=== PATIENT | male | born 1930 | race Caucasian/White ===

== ENCOUNTER 2016-05-11 12:17 | Inpatient (IN) | payer MEDICARE, OTHER ==
[2016-05-11] MEDS ORDERED: HOME MEDICATION LIST NEEDED 1 EA EACH MC ONE (12:29)
[2016-05-11] MEDS ORDERED: ALBUTEROL 0.083% 2.5 MG/3 ML VIAL.NEB NEB PRN (12:29)
[2016-05-11] MEDS: IPRATROPIUM/ALBUTEROL 0.5/3 MG 3 ML AMPUL.NEB IH SCH ×3 (14:33→21:18)
[2016-05-11] MEDS ORDERED: LEVOFLOXACIN/D5W 100 ML IV ONE (14:52)
--- NOTE | 2016-05-11 14:53 | HISTORY & PHYSICAL ---
DATE OF ADMISSION: 05/11/16 ATTENDING PHYSICIAN: Orion Sommer MD CHIEF COMPLAINT: Cough. HISTORY OF PRESENT ILLNESS: Patient is an 86-year-old male who presents with a 7 -day history of URI symptoms. He was seen 4 days ago by Primary Care Physician for URI symptoms and was started on a Z-pack. Over the last 4 days, patients respiratory symptoms have worsened with worsening nonproductive cough , bibasilar respiratory symptoms and pleurisy, insomnia secondary to paroxysmal coughing spasms, dizziness, chills and wheezing. No fever, sore throat, sinus pressure, coryza, postnasal drainage, etc. Patient has increased p.o. fluid intake and is on a Z-pack currently. ALLERGIES: None. MEDICATIONS Aspirin 81 mg p.o. daily. Azithromycin 250 mg p.o. daily with today being day 5 and the last day. Calcium 500 mg p.o. daily. Citrucel 5 grams p.o. b.i.d. Docusate 100 mg p.o. b.i.d. Dulcolax 5 mg p.o. b.i.d. PRN. Glycolax 17 grams p.o. b.i.d. Levothyroxine 50 mg p.o. daily. Milk of magnesium 1-2 tablespoons p.o. b.i.d. PRN. Multivitamin 1 tab p.o. daily. Nortriptyline 50 mg p.o. q.h.s. Pravastatin 40 mg p.o. q.h.s. Rashad raphael. Tamsulosin 0.4 mg 2 tabs p.o. q.h.s. Tessalon Perles 100 mg 1-2 tabs p.o. t.i.d. PRN B-complex 1 tab p.o. daily. Zolpidem 5 mg p.o. q.h.s. PAST MEDICAL HISTORY 1. Acinetic keratosis. 2. Allergic rhinitis 3. Benign prostatic hypertrophy. 4. Blepharitis. 5. Constipation. 6. Cataracts bilaterally. 7. Depression. 8. Dysfunctional tear syndrome. 9. Erectile dysfunction. 10. Esophageal achalasia. 11. Gastritis. 12. Gastroesophageal reflux disease. 13. Transient ischemic attack resulting in visual disturbance. 14. Hyperlipidemia. 15. Hypothyroidism. 16. Insomnia. 17. Irritable bowel syndrome. 18. Peptic ulcer disease. 19. History of rib fracture. 20. Right middle finger, trigger finger release 2012. 21. Left middle finger, trigger finger surgery 2016. 22. Basal cell carcinoma. 23. Tongue cancer, status post resection and radiation therapy. 24. Appendectomy. 25. Bilateral knee arthroplasty. SOCIAL HISTORY: , 1 child. Retired from [employer] ([employer]). Rare alcohol. Quit smoking at a 24-xplb-e-year smoking history. FAMILY HISTORY: Father with lung cancer. REVIEW OF SYSTEMS: No heart, asthma, emphysema, kidney, liver, diabetes, seizures, hypertension, new skin or bleeding disorders. No urinary problems. PREVENTIVE HEALTH: Flu shot 12/12/15. Pneumovax 2004. Prevnar 2013. Due for Tdap on an outpatient basis. PHYSICAL EXAMINATION VITAL SIGNS: Blood pressure 106/70, pulse 64, respiratory rate 20, temperature 98.7, room air pulse oxygen 85% which elvie to 88% on oxygen at 3 liters by nasal prongs and to 90% on oxygen at 4 liters per minute by nasal prongs. GENERAL: Well-developed, well-nourished male, NAD, in no respiratory distress, alert and oriented x3. HEENT: EOMI. PERRLA. Fundi difficult to visualize. Normal conjunctivae. TMs normal. Nasopharynx normal. Pharynx not injected. NECK: No lymphadenopathy. No thyromegaly. No carotid bruits. Neck supple. CHEST: Bibasilar rales, rhonchi or wheezes. COR: RRR without murmurs, gallops, rubs or clicks. No jugular venous distention. No ectopy. ABDOMEN: Soft, nontender. No hepatosplenomegaly. No masses. No bruits. No inguinal nodes. Bowel sounds present. LOWER EXTREMITIES: No edema. Peripheral pulses present. No calf tenderness. Negative Homans sign. NEUROLOGIC: Cranial nerves 2-12 intact. Motor 5/5. Sensory intact. DTRs 1+. CHEST X-RAY: No infiltrate. Reviewed chest x-ray with Radiology. LABORATORY DATA: White blood cell count 10.3 with 42% segs, 36% bands, 14% lymphs, 8% monos. Hemoglobin and hematocrit 14.0/40.5, platelets 153,000. Sodium 138, potassium 3.9, chloride 103, CO2 25, glucose 92, BUN 25, creatinine 1.1, calcium 8.6. ASSESSMENT 1. Clinical pneumonia with profound hypoxia. 2. Hypoxia with patient currently on oxygen at 4 liters per minute by nasal prongs. PLAN 1. Sputum and blood cultures pending. 2. AM lab work pending. 3. Recheck chest x-ray in 2 days. 4. Start Levaquin 500 mg p.o. daily. 5. Start Duoneb updrafts q.4 hours. 6. Mucinex 1200 mg p.o. b.i.d. 7. Solu-Medrol 60 mg IV q.6 hours. 8. Oxygen at 4 liters per minute by nasal prongs to be tapered as symptoms improve. MTDD
[2016-05-11] MEDS: LEVOFLOXACIN/D5W 500 MG in DEXTROSE 5% PREMIX 100 ML 1 BAG IV SCH (15:55)
[2016-05-11] MEDS: GUAIFENESIN ER 600 MG TABLET PO SCH (15:58)
[2016-05-11] MEDS: METHYLPREDNISOLONE SOD 125 MG/2 ML VIAL IV SCH ×2 (15:58→21:15)
[2016-05-11] MEDS: LACTATED RINGERS 1,000 ML IV SCH (19:00)
[2016-05-11] MEDS ORDERED: METHYLCELLULOSE PO PRN (19:07)
[2016-05-11] MEDS ORDERED: BENZONATATE 100 MG CAPSULE PO PRN (19:07)
[2016-05-11] MEDS ORDERED: BISACODYL 5 MG TABLET PO PRN (19:07)
[2016-05-11] MEDS: PRAVASTATIN SODIUM 40 MG TABLET PO SCH (21:18)
[2016-05-11] MEDS: DOCUSATE SODIUM 100 MG CAPSULE PO SCH ×2 (21:19→21:34)
[2016-05-11] MEDS: NORTRIPTYLINE HCL 50 MG PO SCH (21:32)
[2016-05-11] MEDS: ZOLPIDEM TARTRATE 5 MG TABLET PO PRN (21:34)
[2016-05-12] MEDS: METHYLPREDNISOLONE SOD 125 MG/2 ML VIAL IV SCH ×4 (02:22→23:49)
[2016-05-12] MEDS: GUAIFENESIN ER 600 MG TABLET PO SCH ×2 (02:22→14:13)
[2016-05-12] MEDS: IPRATROPIUM/ALBUTEROL 0.5/3 MG 3 ML AMPUL.NEB IH SCH ×6 (02:22→21:04)
[2016-05-12] MEDS: LEVOTHYROXINE 50 MCG TABLET PO SCH (06:16)
[2016-05-12] MEDS: LACTATED RINGERS 1,000 ML IV SCH (06:16)
[2016-05-12 06:36] LABS: BLOOD UREA NITROGEN 33 mg/dL (9-20); CALCIUM 8.2 mg/dL (8.4-10.2); CHLORIDE 102 mmol/L (98-107); CREATININE 0.9 mg/dL (0.7-1.3); POTASSIUM 3.1 mmol/L (3.5-5.1); SODIUM 135 mmol/L (137-145)
[2016-05-12 07:09] LABS: GLUCOSE 210 mg/dL (70-100)
[2016-05-12 07:21] LABS: BASOPHILS 0.1 % (0.0-2.0); HEMATOCRIT 38.5 % (42.0-54.0); HEMOGLOBIN 12.8 g/dL (14.0-18.0); LYMPHOCYTES# 0.4 X 10^3uL (0.8-3.8); MEAN CELL VOLUME 90.4 fL (80.0-100.0); MEAN CORPUS. HGB CONCENTRATION 33.3 g/dL (32.0-36.0); MEAN CORPUSCULAR HEMOGLOBIN 30.1 pg (29.0-35.0); MEAN PLATELET VOLUME 8.6 fL (7.4-10.4); MONOCYTES 1.5 % (2.0-10.0); MONOCYTES# 0.1 X 10^3uL (0.2-1.0); NEUTROPHILS# 6.9 X 10^3uL (2.6-6.7); PLATELET COUNT 144 X 10^3uL (130-440); RED BLOOD COUNT 4.25 X 10^6uL (4.20-6.10); RED CELL DISTRIBUTION WIDTH 13.5 % (11.5-14.5); WHITE BLOOD COUNT 7.4 X 10^3uL (3.9-10.7)
[2016-05-12 08:02] LABS: NEUTROPHILS 93.4 % (54.0-75.0)
[2016-05-12] MEDS ORDERED: LEVOFLOXACIN/D5W 100 ML IV ONE (08:28)
[2016-05-12] MEDS: DOCUSATE SODIUM 100 MG CAPSULE PO SCH ×2 (08:34→21:04)
[2016-05-12] MEDS: TAMSULOSIN HCL 0.4 MG CAPSULE PO SCH (08:35)
[2016-05-12] MEDS: POLYETHYLENE GLYCOL 3350 17 GM POWD.PACK PO SCH (08:39)
[2016-05-12] MEDS: SAW PALMETTO XTR PO SCH (08:41)
[2016-05-12] MEDS: ZINC PICOLIN PO SCH (08:41)
[2016-05-12] MEDS: LEVOFLOXACIN/D5W 500 MG in DEXTROSE 5% PREMIX 100 ML 1 BAG IV SCH (08:42)
[2016-05-12] MEDS ORDERED: MULTIVITAMINS THERAPEUTIC 1 TABLET PO SCH (09:00)
[2016-05-12] MEDS ORDERED: VITAMIN B COMPLEX 1 TABLET PO SCH (09:00)
--- NOTE | 2016-05-12 10:29 | PROGRESS NOTE: IM APSO ---
Assessment and Plan - Date of Encounter Date of Encounter: 05/12/16 (1) Pneumonia, bacterial Status: Acute Assessment and plan: No identified organism. Presenting with significant hypoxemia and airway reactivity. Appears to be responding to treatment. White blood count is okay. Oxygen requirement is improving. He is feeling better clinically. Continue levofloxacin, steroids (considering evidence of significant airway reactivity still), bronchodilators, IV fluids, respiratory therapy. Current Visit: Yes (2) Hypoxemia Status: Acute Assessment and plan: See above. No evidence of cardiac decompensation. Doubt pulmonary embolus. Current Visit: Yes (3) Hypotension Status: Acute Assessment and plan: In the setting of pneumonia and dehydration. Currently her symptomatically. Continue to treat infection. Continue IV fluid resuscitation gently. Current Visit: Yes (4) Hypokalemia Status: Acute Assessment and plan: In the setting of IV fluids yesterday with a likely delusional effect and with poor oral intake over the last few days. Stop LR. Start normal saline with potassium. Additional potassium today. Reassess later today. Current Visit: Yes (5) DVT prophylaxis Status: Acute Assessment and plan: Lovenox. Current Visit: Yes - Time Spent With Patient Total time spent with greater than 50% in coordination of care (as documented) at patient's floor/unit and/or counseling patient: 16-24 minutes Estimated anticipated discharge: 2 days IM: PN Subjective General: fatigue, malaise, tremor (mild), no confusion (resolved this morning), no fever, no chills HEENT: no headache Cardiovascular: no chest pain, no palpitations, no dizziness Respiratory: cough, sputum, wheeze, SOB Gastrointestinal: no abdominal pain, no nausea, no vomiting Integumentary: no rashes Neurological: other (generalized weakness), no headache IM: PN Objective Exam - I&O/Vital Signs I&O: Intake & Output 05/11/16 05/12/16 05/12/16 21:59 05:59 13:59 Intake Total 900 1400 Output Total 150 Balance 900 1250 Weight 70.307 kg 70 kg Intake: IV 300 1050 Left Forearm 300 1050 Oral 600 350 Output: Urine 150 Other: Urine Appearance Clear Clear Clear Urine Color Yellow Light Megha Light Megha Stool Size Moderate Stool Characteristics Formed Voiding Method Toilet Toilet Toilet # Voids 1 1 # Bowel Movements 1 Vital Signs: Last Vital Signs Temp 36.2 C L 05/12/16 06:11 Pulse 58 L 05/12/16 06:11 Resp 16 05/12/16 09:00 BP 97/51 05/12/16 06:11 Pulse Ox 93 05/12/16 09:00 Oxygen Flow Rate 2 Oxygen Delivery Method Nasal Cannula - Constitutional General appearance: Present: average body habitus - Head Head exam: Present: atraumatic - Eye Eye exam: Present: PERRL. Absent: scleral icterus - ENT ENT exam: Present: mucous membranes dry - Neck Neck exam: Present: full ROM - Respiratory Respiratory exam: Present: rales (coarse, bibasilar), rhonchi, wheezes. Absent : respiratory distress, stridor - Cardiovascular Cardiovascular exam: Present: RRR (distant). Absent: S3, S4, systolic murmur - GI/Abdominal GI/Abdominal exam: Present: normal bowel sounds, soft. Absent: organomegaly, rebound, rigid, tenderness - Extremities Exam Extremities exam: Absent: calf tenderness, edema - Neurological Exam Neurological exam: Present: oriented X3 - Psychiatric Psychiatric exam: Absent: anxious, depressed - Skin Skin exam: Absent: rash - Allied Health Notes Allied health notes reviewed: case management, nursing - Lab Labs: Laboratory Last Values WBC 7.4 X 10^3uL (3.9-10.7) 05/12/16 05:40 RBC 4.25 X 10^6uL (4.20-6.10) 05/12/16 05:40 Hgb 12.8 g/dL (14.0-18.0) L 05/12/16 05:40 Hct 38.5 % (42.0-54.0) L 05/12/16 05:40 MCV 90.4 fL (80.0-100.0) 05/12/16 05:40 MCH 30.1 pg (29.0-35.0) 05/12/16 05:40 MCHC 33.3 g/dL (32.0-36.0) 05/12/16 05:40 RDW 13.5 % (11.5-14.5) 05/12/16 05:40 Plt Count 144 X 10^3uL (130-440) 05/12/16 05:40 MPV 8.6 fL (7.4-10.4) 05/12/16 05:40 Neutrophils % 93.4 % (54.0-75.0) H 05/12/16 05:40 Lymphocytes % 5.0 % (20.0-40.0) L 05/12/16 05:40 Eosinophils % 0.0 % (0.0-6.0) 05/12/16 05:40 Basophils % 0.1 % (0.0-2.0) 05/12/16 05:40 Neutrophils # 6.9 X 10^3uL (2.6-6.7) H 05/12/16 05:40 Lymphocytes # 0.4 X 10^3uL (0.8-3.8) L 05/12/16 05:40 Monocytes 1.5 % (2.0-10.0) L 05/12/16 05:40 Monocytes # 0.1 X 10^3uL (0.2-1.0) L 05/12/16 05:40 Eosinophils # 0.0 X 10^3uL (0.0-0.4) 05/12/16 05:40 Basophils # 0.0 X 10^3uL (0.0-0.1) 05/12/16 05:40 Sodium 135 mmol/L (137-145) L 05/12/16 05:40 Potassium 3.1 mmol/L (3.5-5.1) L D 05/12/16 05:40 Chloride 102 mmol/L (98-107) 05/12/16 05:40 Carbon Dioxide 21 mmol/L (22-30) L 05/12/16 05:40 BUN 33 mg/dL (9-20) H 05/12/16 05:40 Creatinine 0.9 mg/dL (0.7-1.3) 05/12/16 05:40 GFR Calculation Not Reportable 05/12/16 05:40 Glucose 210 mg/dL (70-100) H 05/12/16 05:40 Calcium 8.2 mg/dL (8.4-10.2) L 05/12/16 05:40 Quality Questions - VTE Prophylaxis Assessment VTE Present on Admission?: No Patient at risk for venous thromboembolism?: Yes VTE Risk Level: High Risk VTE Medical Contraindication: N/A-VTE Prophylaxis ordered (3) Hypotension Qualifiers: Hypotension type: orthostatic hypotension Qualified Code(s): I95.1 - Orthostatic hypotension
[2016-05-12] MEDS: POTASSIUM CHLORIDE/NS 1,000 ML IV SCH (10:31)
[2016-05-12] MEDS: POTASSIUM CHLORIDE 20 MEQ/100 ML PIGGYBACK IV SCH ×2 (10:32→12:00)
[2016-05-12] MEDS ORDERED: ALBUTEROL 0.083% 2.5 MG/3 ML VIAL.NEB NEB PRN (10:38)
[2016-05-12] MEDS ORDERED: POTASSIUM CHLORIDE/NS 1,000 ML IV ONE (10:41)
[2016-05-12] MEDS ORDERED: METHYLPREDNISOLONE SOD 125 MG/2 ML VIAL IV SCH (11:00)
[2016-05-12] MEDS: ENOXAPARIN SODIUM 40 MG/0.4 ML SYR SUBCUT SCH (11:15)
[2016-05-12 20:40] LABS: CALCIUM 8.5 mg/dL (8.4-10.2); CREATININE 0.9 mg/dL (0.7-1.3); POTASSIUM 3.6 mmol/L (3.5-5.1)
[2016-05-12] MEDS: PRAVASTATIN SODIUM 40 MG TABLET PO SCH (21:04)
[2016-05-12] MEDS: MAGNESIUM HYDROXIDE 30 ML UDC PO PRN (21:06)
[2016-05-12] MEDS: NORTRIPTYLINE HCL 50 MG PO SCH (21:32)
[2016-05-12] MEDS: ZOLPIDEM TARTRATE 5 MG TABLET PO PRN (22:37)
[2016-05-12] MEDS: ACETAMINOPHEN 325 MG TABLET PO PRN (23:53)
[2016-05-13] MEDS: GUAIFENESIN ER 600 MG TABLET PO SCH ×3 (00:12→20:41)
[2016-05-13] MEDS: POTASSIUM CHLORIDE/NS 1,000 ML IV SCH (00:13)
[2016-05-13] MEDS ORDERED: ZOLPIDEM TARTRATE 5 MG TABLET PO ONE (02:13)
[2016-05-13] MEDS: NA PHOS,M-B/NA PHOS,DI-BA 133 ML BTL RECTAL PRN (02:59)
[2016-05-13] MEDS: LEVOTHYROXINE 50 MCG TABLET PO SCH (05:57)
[2016-05-13 06:19] LABS: BLOOD UREA NITROGEN 40 mg/dL (9-20); CALCIUM 8.2 mg/dL (8.4-10.2); CHLORIDE 107 mmol/L (98-107); CREATININE 0.8 mg/dL (0.7-1.3); GLUCOSE 106 mg/dL (70-100); POTASSIUM 3.7 mmol/L (3.5-5.1); SODIUM 138 mmol/L (137-145)
[2016-05-13 07:59] LABS: HEMATOCRIT 37.6 % (42.0-54.0); HEMOGLOBIN 12.7 g/dL (14.0-18.0); MEAN CELL VOLUME 90.8 fL (80.0-100.0); MEAN CORPUS. HGB CONCENTRATION 33.9 g/dL (32.0-36.0); MEAN CORPUSCULAR HEMOGLOBIN 30.8 pg (29.0-35.0); MEAN PLATELET VOLUME 8.1 fL (7.4-10.4); PLATELET COUNT 195 X 10^3uL (130-440); RED BLOOD COUNT 4.14 X 10^6uL (4.20-6.10); RED CELL DISTRIBUTION WIDTH 13.5 % (11.5-14.5); WHITE BLOOD COUNT 18.2 X 10^3uL (3.9-10.7)
[2016-05-13 08:03] LABS: BAND% (Manual) 8 % (0.0-1.0); LYMPHOCYTE % (Manual) 3 % (20.0-40.0); MONOCYTE % (Manual) 1 % (2.0-10.0); NEUTROPHIL % (Manual) 88 % (54.0-75.0); PLATELET ESTIMATE ADEQUATE
[2016-05-13 08:04] LABS: BURR CELLS PRESENT
[2016-05-13] MEDS ORDERED: PSYLLIUM SEED 1 PKT PACKET PO PRN (08:51)
[2016-05-13] MEDS: POLYETHYLENE GLYCOL 3350 17 GM POWD.PACK PO SCH (08:53)
[2016-05-13] MEDS: TAMSULOSIN HCL 0.4 MG CAPSULE PO SCH (08:54)
[2016-05-13] MEDS: DOCUSATE SODIUM 100 MG CAPSULE PO SCH ×2 (08:54→20:40)
[2016-05-13] MEDS: ENOXAPARIN SODIUM 40 MG/0.4 ML SYR SUBCUT SCH (08:56)
[2016-05-13] MEDS: LEVOFLOXACIN/D5W 500 MG in DEXTROSE 5% PREMIX 100 ML 1 BAG IV SCH (08:56)
[2016-05-13] MEDS: METHYLPREDNISOLONE SOD 125 MG/2 ML VIAL IV SCH ×3 (08:56→23:42)
[2016-05-13] MEDS: ZINC PICOLIN PO SCH (08:57)
[2016-05-13] MEDS: SAW PALMETTO XTR PO SCH (08:57)
[2016-05-13] MEDS ORDERED: LEVOFLOXACIN/D5W 100 ML IV ONE (09:02)
[2016-05-13] MEDS: IPRATROPIUM/ALBUTEROL 0.5/3 MG 3 ML AMPUL.NEB IH SCH ×4 (09:10→20:40)
--- NOTE | 2016-05-13 10:18 | PROGRESS NOTE: IM APSO ---
Assessment and Plan - Date of Encounter Date of Encounter: 05/13/16 (1) Pneumonia, bacterial Status: Acute Assessment and plan: Neg blood and sputum cultures Worsening leukocytosis, but less left shift. Suspect pt is starting to respond to Rx Continue present Rx Current Visit: Yes (2) Hypoxemia Status: Acute Assessment and plan: O2 @ 2 l/min Current Visit: Yes (3) Hypokalemia Status: Resolved Current Visit: Yes (4) Hypotension Status: Acute Assessment and plan: Improved Current Visit: Yes - Time Spent With Patient Total time spent with greater than 50% in coordination of care (as documented) at patient's floor/unit and/or counseling patient: Estimated anticipated discharge: 2 days IM: PN Subjective Interval history: Feeling some better Cardiovascular: no chest pain Respiratory: cough (less productive, and mostly at night), no SOB IM: PN Objective Exam - I&O/Vital Signs I&O: Intake & Output 05/12/16 05/13/16 05/13/16 21:59 05:59 13:59 Intake Total 1126 1537 Output Total 550 675 Balance 576 862 Weight 71 kg Intake: IV 406 1287 Left Forearm 406 1287 Oral 720 250 Output: Urine 550 675 Other: Urine Appearance Clear Clear Urine Color Yellow Light Megha Stool Size Smear Copious Stool Characteristics Hard Soft Formed Hard Liquid Mucoid Brown Voiding Method Toilet Toilet # Voids 3 # Bowel Movements 3 Vital Signs: Last Vital Signs Temp 36.3 C L 05/13/16 07:00 Pulse 60 05/13/16 07:00 Resp 16 05/13/16 07:00 BP 100/57 05/13/16 07:00 Pulse Ox 92 05/13/16 07:00 Oxygen Flow Rate 2 Oxygen Delivery Method Nasal Cannula - Respiratory Respiratory exam: Present: rales (fine L basilar), rhonchi. Absent: wheezes - Cardiovascular Cardiovascular exam: Present: RRR. Absent: systolic murmur - GI/Abdominal GI/Abdominal exam: Present: soft. Absent: tenderness - Extremities Exam Extremities exam: Absent: calf tenderness, edema - Lab Labs: Laboratory Last Values WBC 18.2 X 10^3uL (3.9-10.7) H 05/13/16 05:55 RBC 4.14 X 10^6uL (4.20-6.10) L 05/13/16 05:55 Hgb 12.7 g/dL (14.0-18.0) L 05/13/16 05:55 Hct 37.6 % (42.0-54.0) L 05/13/16 05:55 MCV 90.8 fL (80.0-100.0) 05/13/16 05:55 MCH 30.8 pg (29.0-35.0) 05/13/16 05:55 MCHC 33.9 g/dL (32.0-36.0) 05/13/16 05:55 RDW 13.5 % (11.5-14.5) 05/13/16 05:55 Plt Count 195 X 10^3uL (130-440) 05/13/16 05:55 MPV 8.1 fL (7.4-10.4) 05/13/16 05:55 Total Counted 100 05/13/16 05:55 Neutrophils % 93.4 % (54.0-75.0) H 05/12/16 05:40 Neutrophils % (Manual) 88 % (54.0-75.0) H 05/13/16 05:55 Band Neuts % (Manual) 8 % (0.0-1.0) H 05/13/16 05:55 Lymphocytes % 5.0 % (20.0-40.0) L 05/12/16 05:40 Lymphocytes % (Manual) 3 % (20.0-40.0) L 05/13/16 05:55 Atypical Lymphs % (Man) 0 % 05/13/16 05:55 Monocytes % (Manual) 1 % (2.0-10.0) L 05/13/16 05:55 Eosinophils % 0.0 % (0.0-6.0) 05/12/16 05:40 Basophils % 0.1 % (0.0-2.0) 05/12/16 05:40 Neutrophils # 6.9 X 10^3uL (2.6-6.7) H 05/12/16 05:40 Lymphocytes # 0.4 X 10^3uL (0.8-3.8) L 05/12/16 05:40 Monocytes 1.5 % (2.0-10.0) L 05/12/16 05:40 Monocytes # 0.1 X 10^3uL (0.2-1.0) L 05/12/16 05:40 Eosinophils # 0.0 X 10^3uL (0.0-0.4) 05/12/16 05:40 Basophils # 0.0 X 10^3uL (0.0-0.1) 05/12/16 05:40 Platelet Estimate Adequate 05/13/16 05:55 Anisocytosis 10-19% of cells 05/13/16 05:55 Macrocytosis 10-19% of cells 05/13/16 05:55 [place] Cells Present 05/13/16 05:55 Sodium 138 mmol/L (137-145) 05/13/16 05:55 Potassium 3.7 mmol/L (3.5-5.1) 05/13/16 05:55 Chloride 107 mmol/L (98-107) 05/13/16 05:55 Carbon Dioxide 21 mmol/L (22-30) L 05/13/16 05:55 BUN 40 mg/dL (9-20) H 05/13/16 05:55 Creatinine 0.8 mg/dL (0.7-1.3) 05/13/16 05:55 GFR Calculation Not Reportable 05/13/16 05:55 Glucose 106 mg/dL (70-100) H 05/13/16 05:55 Calcium 8.2 mg/dL (8.4-10.2) L 05/13/16 05:55 (4) Hypotension Qualifiers: Hypotension type: orthostatic hypotension Qualified Code(s): I95.1 - Orthostatic hypotension Anisocytosis 10-19% of cells 05/13/16 05:55 Macrocytosis 10-19% of cells 05/13/16 05:55 [place] Cells Present 05/13/16 05:55 Sodium 138 mmol/L (137-145) 05/13/16 05:55 Potassium 3.7 mmol/L (3.5-5.1) 05/13/16 05:55 Chloride 107 mmol/L (98-107) 05/13/16 05:55 Carbon Dioxide 21 mmol/L (22-30) L 05/13/16 05:55 BUN 40 mg/dL (9-20) H 05/13/16 05:55 Creatinine 0.8 mg/dL (0.7-1.3) 05/13/16 05:55 GFR Calculation Not Reportable 05/13/16 05:55 Glucose 106 mg/dL (70-100) H 05/13/16 05:55 Calcium 8.2 mg/dL (8.4-10.2) L 05/13/16 05:55 (4) Hypotension Qualifiers: Hypotension type: orthostatic hypotension Qualified Code(s): I95.1 - Orthostatic hypotension
--- NOTE | 2016-05-13 11:43 | RADIOLOGY REPORT ---
Two views of the chest are compared with prior films dated 05/11/2016. The heart and vessels are stable and unremarkable. The lung null are clear. No infiltrate, fluid or pneumothorax is seen. IMPRESSION: Stable chest x-ray demonstrates no acute cardiopulmonary abnormality. MTDD
[2016-05-13] MEDS: AMITRIPTYLINE HCL 25 MG TABLET PO SCH (20:41)
[2016-05-13] MEDS: PRAVASTATIN SODIUM 40 MG TABLET PO SCH (20:42)
[2016-05-13] MEDS: ACETAMINOPHEN 325 MG TABLET PO PRN (20:52)
[2016-05-13] MEDS: ZOLPIDEM TARTRATE 5 MG TABLET PO PRN (20:52)
[2016-05-14] MEDS ORDERED: ALBUTEROL INHALATION SCH
[2016-05-14] MEDS ORDERED: IPRATROPIUM INHALATION SCH
[2016-05-14] MEDS ORDERED: MAG-AL PLUS XS SUSP 30 ML UDC PO PRN (04:02)
[2016-05-14] MEDS: LEVOTHYROXINE 50 MCG TABLET PO SCH (05:56)
[2016-05-14 06:38] LABS: BLOOD UREA NITROGEN 31 mg/dL (9-20); CALCIUM 8.2 mg/dL (8.4-10.2); CHLORIDE 107 mmol/L (98-107); CREATININE 0.7 mg/dL (0.7-1.3); GLUCOSE 117 mg/dL (70-100); POTASSIUM 4.4 mmol/L (3.5-5.1); SODIUM 136 mmol/L (137-145)
[2016-05-14 06:43] LABS: HEMATOCRIT 37.4 % (42.0-54.0); HEMOGLOBIN 12.3 g/dL (14.0-18.0); MEAN CELL VOLUME 90.3 fL (80.0-100.0); MEAN CORPUSCULAR HEMOGLOBIN 29.8 pg (29.0-35.0); MEAN PLATELET VOLUME 8.4 fL (7.4-10.4); PLATELET COUNT 210 X 10^3uL (130-440); RED BLOOD COUNT 4.14 X 10^6uL (4.20-6.10); RED CELL DISTRIBUTION WIDTH 13.5 % (11.5-14.5); WHITE BLOOD COUNT 16.4 X 10^3uL (3.9-10.7)
[2016-05-14 07:13] LABS: LYMPHOCYTE % (Manual) 4 % (20.0-40.0); NEUTROPHIL % (Manual) 87 % (54.0-75.0)
[2016-05-14 07:14] LABS: BURR CELLS PRESENT; MONOCYTE % (Manual) 7 % (2.0-10.0); PLATELET ESTIMATE ADEQUATE
[2016-05-14 07:15] LABS: BAND% (Manual) 2 % (0.0-1.0)
[2016-05-14] MEDS: CLOTRIMAZOLE 10 MG TROCHE MUCOUS MEM SCH ×4 (08:32→20:26)
[2016-05-14] MEDS: DOCUSATE SODIUM 100 MG CAPSULE PO SCH ×2 (08:33→20:26)
[2016-05-14] MEDS: METHYLPREDNISOLONE SOD 125 MG/2 ML VIAL IV SCH (08:33)
[2016-05-14] MEDS: TAMSULOSIN HCL 0.4 MG CAPSULE PO SCH (08:34)
[2016-05-14] MEDS: GUAIFENESIN ER 600 MG TABLET PO SCH ×2 (08:34→20:27)
[2016-05-14] MEDS ORDERED: LEVOFLOXACIN/D5W 100 ML IV ONE (08:37)
[2016-05-14] MEDS: ENOXAPARIN SODIUM 40 MG/0.4 ML SYR SUBCUT SCH (09:09)
[2016-05-14] MEDS: LEVOFLOXACIN/D5W 500 MG in DEXTROSE 5% PREMIX 100 ML 1 BAG IV SCH (09:09)
[2016-05-14] MEDS: POLYETHYLENE GLYCOL 3350 17 GM POWD.PACK PO SCH (09:09)
[2016-05-14] MEDS: SAW PALMETTO XTR PO SCH (09:10)
[2016-05-14] MEDS: ZINC PICOLIN PO SCH (09:10)
[2016-05-14] MEDS: IPRATROPIUM/ALBUTEROL 0.5/3 MG 3 ML AMPUL.NEB IH SCH (09:13)
--- NOTE | 2016-05-14 09:26 | PROGRESS NOTE: IM APSO ---
Assessment and Plan - Date of Encounter Date of Encounter: 05/14/16 (1) Pneumonia, bacterial Status: Acute Assessment and plan: No identified organism. Presenting with significant hypoxemia and airway reactivity. Responding to treatment. Persistent leukocytosis, but with probable steroid effect. Saturating well on room air during the day with mild hypoxia at night last night. He is feeling better day by day. Anticipate discharge to home tomorrow morning. Change to oral antibiotic. Change to oral steroid. Change to Combivent MDI. I will send prescriptions to his local pharmacy today in anticipation of discharge. Current Visit: Yes (2) Hypoxemia Status: Acute Current Visit: Yes (3) Hypotension Status: Resolved Current Visit: Yes (4) DVT prophylaxis Status: Acute Assessment and plan: Lovenox. Current Visit: Yes - Time Spent With Patient Total time spent with greater than 50% in coordination of care (as documented) at patient's floor/unit and/or counseling patient: 16-24 minutes Estimated anticipated discharge: tomorrow IM: PN Subjective General: other (developed thrush yesterday), no fever, no chills Cardiovascular: no chest pain, no palpitations Respiratory: cough (less productive, and mostly at night), wheeze (better), no SOB Gastrointestinal: no abdominal pain, no nausea, no vomiting, no diarrhea Musculoskeletal: no pain Integumentary: no rashes IM: PN Objective Exam - I&O/Vital Signs I&O: Intake & Output 05/13/16 05/14/16 05/14/16 21:59 05:59 13:59 Intake Total 590 520 Output Total 850 575 Balance -260 -55 Intake: IV 110 20 Left Forearm 110 20 Oral 480 500 Output: Urine 850 575 Other: Urine Appearance Clear Urine Color Yellow Voiding Method Toilet Toilet Vital Signs: Last Vital Signs Temp 36.2 C L 05/14/16 06:15 Pulse 60 05/14/16 06:15 Resp 18 05/14/16 06:15 BP 118/69 05/14/16 06:15 Pulse Ox 94 05/14/16 06:15 Oxygen Flow Rate 1 Oxygen Delivery Method Nasal Cannula - Constitutional General appearance: Present: average body habitus - Head Head exam: Present: atraumatic - Eye Eye exam: Present: PERRL. Absent: scleral icterus - ENT ENT exam: Present: mucous membranes moist, other (mild thrush) - Neck Neck exam: Present: full ROM - Respiratory Respiratory exam: Present: rales (bibasilar, left greater than right), rhonchi, wheezes (scattered expiratory) - Cardiovascular Cardiovascular exam: Present: RRR. Absent: S3, S4 - GI/Abdominal GI/Abdominal exam: Present: normal bowel sounds, soft. Absent: organomegaly, rebound, rigid, tenderness - Extremities Exam Extremities exam: Absent: calf tenderness, edema - Neurological Exam Neurological exam: Present: oriented X3 - Psychiatric Psychiatric exam: Absent: anxious, depressed - Skin Skin exam: Absent: rash - Allied Health Notes Allied health notes reviewed: nursing, RT - Lab Labs: Laboratory Last Values WBC 16.4 X 10^3uL (3.9-10.7) H 05/14/16 06:10 RBC 4.14 X 10^6uL (4.20-6.10) L 05/14/16 06:10 Hgb 12.3 g/dL (14.0-18.0) L 05/14/16 06:10 Hct 37.4 % (42.0-54.0) L 05/14/16 06:10 MCV 90.3 fL (80.0-100.0) 05/14/16 06:10 MCH 29.8 pg (29.0-35.0) 05/14/16 06:10 MCHC 33.0 g/dL (32.0-36.0) 05/14/16 06:10 RDW 13.5 % (11.5-14.5) 05/14/16 06:10 Plt Count 210 X 10^3uL (130-440) 05/14/16 06:10 MPV 8.4 fL (7.4-10.4) 05/14/16 06:10 Total Counted 100 05/14/16 06:10 Neutrophils % 93.4 % (54.0-75.0) H 05/12/16 05:40 Neutrophils % (Manual) 87 % (54.0-75.0) H 05/14/16 06:10 Band Neuts % (Manual) 2 % (0.0-1.0) H 05/14/16 06:10 Lymphocytes % 5.0 % (20.0-40.0) L 05/12/16 05:40 Lymphocytes % (Manual) 4 % (20.0-40.0) L 05/14/16 06:10 Atypical Lymphs % (Man) 0 % 05/13/16 05:55 Monocytes % (Manual) 7 % (2.0-10.0) 05/14/16 06:10 Eosinophils % 0.0 % (0.0-6.0) 05/12/16 05:40 Basophils % 0.1 % (0.0-2.0) 05/12/16 05:40 Neutrophils # 6.9 X 10^3uL (2.6-6.7) H 05/12/16 05:40 Lymphocytes # 0.4 X 10^3uL (0.8-3.8) L 05/12/16 05:40 Monocytes 1.5 % (2.0-10.0) L 05/12/16 05:40 Monocytes # 0.1 X 10^3uL (0.2-1.0) L 05/12/16 05:40 Eosinophils # 0.0 X 10^3uL (0.0-0.4) 05/12/16 05:40 Basophils # 0.0 X 10^3uL (0.0-0.1) 05/12/16 05:40 Platelet Estimate Adequate 05/14/16 06:10 Anisocytosis 10-19% of cells 05/14/16 06:10 Macrocytosis 10-19% of cells 05/13/16 05:55 [place] Cells Present 05/14/16 06:10 Sodium 136 mmol/L (137-145) L 05/14/16 06:10 Potassium 4.4 mmol/L (3.5-5.1) 05/14/16 06:10 Chloride 107 mmol/L (98-107) 05/14/16 06:10 Carbon Dioxide 22 mmol/L (22-30) 05/14/16 06:10 BUN 31 mg/dL (9-20) H 05/14/16 06:10 Creatinine 0.7 mg/dL (0.7-1.3) 05/14/16 06:10 GFR Calculation Not Reportable 05/14/16 06:10 Glucose 117 mg/dL (70-100) H 05/14/16 06:10 Calcium 8.2 mg/dL (8.4-10.2) L 03/03/17 06:10 (3) Hypotension Qualifiers: Hypotension type: orthostatic hypotension Qualified Code(s): I95.1 - Orthostatic hypotension
--- NOTE | 2016-05-14 09:43 | DC SUMMARY: IM Note ---
<INES DUMONT - Last Filed: 05/14/16 09:38> Discharge Summary: IM/Peds Provider: Date of Admission: 05/11/16 Admitting Provider: JOE JUNIOR MD Attending Provider: INES DUMONT MD Discharging Provider: INES DUMONT MD Primary Care Provider: Discharge Date: 05/14/16 - Diagnosis (1) Pneumonia, bacterial Status: Acute (2) Hypoxemia Status: Acute (3) Hypotension Status: Resolved Qualifiers: Hypotension type: orthostatic hypotension Qualified Code(s): I95.1 - Orthostatic hypotension (4) Thrush Status: Acute (5) DVT prophylaxis Status: Acute Hospital Course: As previously documented, patient admitted for failure of outpatient therapy for pulmonary infection. Evidence of pneumonia clinically, although chest x-ray not showing any infiltrates. Cultures not showing any evidence of clear organism. Significant airway reactivity. Had been treated with azithromycin orally in the outpatient setting. Treated here with IV and then oral levofloxacin with good response. Treated with IV steroids and transitioned to oral. Treated with bronchodilator therapy, initially nebulizers and then transitioned to MDI. Clinical improvement with decreased cough, increased energy and strength, decreased wheezing, significant improvement in oxygenation. Will discharge to home on 5 days of levofloxacin, another 5 days of prednisone burst, Combivent MDI for the next couple of weeks. Initially, had hypokalemia which was treated with initially IV replacement. Had hypotension which resolved with IV fluid resuscitation and treatment of infection. Did develop thrush and was started on clotrimazole troches. - Time Spent with Patient Total time spent providing and/or coordinating discharge services: Discharge - Patient/Caregiver Discharge Instructions Activity Level: As tolerated. Diet: Cardiac. Follow up: INES DUMONT MD [Primary Care Provider] - 2 Weeks Overall discharge status: patient is progressing back to baseline Print Language: KYRGYZ Home Medications: Ipratropium/Albuterol [Combivent Inhaler*] 2 puff INHALATION QID #1 inhaler Levofloxacin 500 mg PO DAILY #5 tab Clotrimazole [Mycelex*] 10 mg MUCOUS MEM 5 TIMES DAILY #35 halley prednisone [Prednisone] 20 mg PO BID #10 tablet Benzonatate [Tessalon Perle] 200 mg PO TID PRN #50 capsule PRN Reason: Cough, Moderate Disposition: HOME, SELF-CARE 1. Medical reason for no anticoagulation order on D/C?: Treatment not indicated 2. Medical reason for no anticoag overlap on D/C?: Treatment not indicated Discharge Summary Data - Medication History Medication History: Home Medications Docusate Sodium [Colace*] 100 mg PO BID 05/11/16 Levothyroxine [Synthroid*] 50 mcg PO DAILY 05/11/16 Magnesium Hydroxide [Milk of Magnesia*] 5 - 10 ml PO BID PRN 05/11/16 Methylcellulose [Citrucel] 5 gm PO BID PRN 05/11/16 Multivitamins,Therapeutic [Thera Multivitamin*] 1 tab PO DAILY 05/11/16 Nortriptyline HCl 50 mg PO HS 05/11/16 Polyethylene Glycol 3350 [Glycolax] 17 gm PO DAILY 05/11/16 Pravastatin Sodium [Pravastatin Sodium*] 40 mg PO HS 05/11/16 Saw Hunter Xtr/Zinc Picolin [Saw Hunter Capsule] 1 cap PO DAILY 05/11/16 Tamsulosin HCl [Flomax*] 0.8 mg PO DAILY 05/11/16 Vitamin B Complex 1 tab PO DAILY 05/11/16 Zolpidem Tartrate [Ambien*] 5 mg PO HS PRN 05/11/16 Acetaminophen [Tylenol*] 650 mg PO Q6H PRN #1 tablet 05/14/16 Benzonatate [Tessalon Perle] 200 mg PO TID PRN #50 capsule 05/14/16 Bisacodyl [Bisacodyl*] 5 mg PO BID PRN #1 05/14/16 Clotrimazole [Mycelex*] 10 mg MUCOUS MEM 5 TIMES DAILY #35 halley 05/14/16 Guaifenesin ER [Mucinex*] 1,200 mg PO Q12H 7 Days 05/14/16 Ipratropium/Albuterol [Combivent Inhaler*] 2 puff INHALATION QID #1 inhaler 05/28 Levofloxacin 500 mg PO DAILY #5 tab 05/14/16 aspirin EC [Aspirin EC*] 81 mg PO BID #1 05/14/16 prednisone [Prednisone] 20 mg PO BID #10 tablet 05/14/16 Inpatient Medications 05/11/16 09:00 Levofloxacin/D5w [Levaquin 500 mg] 500 mg Dextrose 5% Premix 100 ml [D5w 100 ml [Premix]] 1 bag IV DAILY 05/11/16 12:29 Acetaminophen [Tylenol] 650 mg PO Q6H PRN 05/11/16 19:07 Benzonatate [Tessalon Pearles] 100 mg PO TID PRN Bisacodyl [Dulcolax] 5 mg PO BID PRN Magnesium Hydroxide [Milk of Magnesia] 5 - 10 ml PO BID PRN Zolpidem Tartrate [Ambien] 5 mg PO HS PRN 05/11/16 21:00 Docusate Sodium [Colace] 100 mg PO BID Pravastatin Sodium [Pravachol] 40 mg PO HS aspirin EC [Ecotrin 81 mg] 81 mg PO BID 05/12/16 06:30 Levothyroxine [Synthroid] 50 mcg PO BEFORE BREAKFAST 05/12/16 09:00 Polyethylene Glycol 3350 [miraLAX] 17 gm PO DAILY Saw Hunter Xtr/Zinc Picolin [Saw Hunter Capsule] 1 cap PO DAILY Tamsulosin HCl [Flomax] 0.8 mg PO DAILY 05/12/16 10:38 Albuterol 0.083% [Ventolin 0.083% Neb Soln] 2.5 mg NEB Q4H PRN 05/12/16 10:45 Enoxaparin Sodium [Lovenox] 40 mg SUBCUT DAILY 05/12/16 13:00 Ipratropium/Albuterol 0.5/3 mg [Duoneb 2.5-0.5 mg/3 ml Soln] 3 ml IH QID 05/12/16 16:30 Methylprednisolone Sod [Solu-Medrol] 60 mg IV Q8H 05/13/16 02:48 Na Phos,M-B/Na Phos,Di-Ba [Fleet Enema] 133 ml RECTAL ONCE PRN 05/13/16 08:51 Psyllium Seed [Konsyl [place] Sf] 1 pkt PO BID PRN 05/13/16 09:00 Guaifenesin ER [Mucinex] 1,200 mg PO Q12H 05/13/16 21:00 Amitriptyline HCl [Elavil] 50 mg PO HS 05/14/16 04:02 Mag-Al Plus Xs Susp [Maalox Liquid] 30 ml PO Q4H PRN 05/14/16 08:00 Clotrimazole [Mycelex] 10 mg MUCOUS MEM 5 TIMES DAILY Procedures and tests throughout hospitalization: Completed Lab Orders 05/12/16 05:40 BASIC METABOLIC PANEL [CHEM] AMDRAW CBC AUTO DIF, MDIF/RMOR IF IND [HEM] AMDRAW 05/12/16 12:25 BASIC METABOLIC PANEL [CHEM] Urgent 05/13/16 05:55 BMP [BASIC METABOLIC PANEL] [CHEM] AMDRAW CBC WITHOUT A DIFFERENTIAL [HEM] Routine MANUAL DIFFERENTIAL [HEM] Routine 05/14/16 06:10 BMP [BASIC METABOLIC PANEL] [CHEM] AMDRAW CBC W/ MANUAL DIFFERENTIAL [HEM] AMDRAW Completed Imaging Orders 05/13/16 07:00 CXR 2V [id number] [RAD] ONCE Completed Microbiology Orders 05/11/16 16:00 SPUTUM CULTURE AND GRAM STAIN [RM] Routine Pending Orders 05/11/16 09:00 Levofloxacin/D5w [Levaquin 500 mg] 500 mg Dextrose 5% Premix 100 ml [D5w 100 ml [Premix]] 1 bag IV DAILY 05/11/16 12:29 Admit: Inpatient Routine Activity: Ambulate TID Assess pulse oximetry CONTINUOUS Humidify Oxygen CONTINUOUS Intake and Output QSHIFT I&O Obtain weight 0600 Resuscitation Status Routine Teach: Deep Breathing & Coughi . Titrate Oxygen TITRATE TO >90% Vital Signs ROUTINE VITALS (Q4H) Putter In Consult [CM] Routine Acetaminophen [Tylenol] 650 mg PO Q6H PRN 05/11/16 12:38 Respiratory Therapy Consult [RT] Routine 05/11/16 19:07 Benzonatate [Tessalon Pearles] 100 mg PO TID PRN Bisacodyl [Dulcolax] 5 mg PO BID PRN Magnesium Hydroxide [Milk of Magnesia] 5 - 10 ml PO BID PRN Zolpidem Tartrate [Ambien] 5 mg PO HS PRN 05/11/16 21:00 Docusate Sodium [Colace] 100 mg PO BID Pravastatin Sodium [Pravachol] 40 mg PO HS aspirin EC [Ecotrin 81 mg] 81 mg PO BID 05/11/16 Dinner Regular [DIET] 05/12/16 06:30 Levothyroxine [Synthroid] 50 mcg PO BEFORE BREAKFAST 05/12/16 09:00 Polyethylene Glycol 3350 [miraLAX] 17 gm PO DAILY Saw Hunter Xtr/Zinc Picolin [Saw Hunter Capsule] 1 cap PO DAILY Tamsulosin HCl [Flomax] 0.8 mg PO DAILY 05/12/16 10:38 Albuterol 0.083% [Ventolin 0.083% Neb Soln] 2.5 mg NEB Q4H PRN 05/12/16 10:45 Enoxaparin Sodium [Lovenox] 40 mg SUBCUT DAILY 05/12/16 13:00 Ipratropium/Albuterol 0.5/3 mg [Duoneb 2.5-0.5 mg/3 ml Soln] 3 ml IH QID 05/12/16 16:30 Methylprednisolone Sod [Solu-Medrol] 60 mg IV Q8H 05/13/16 02:48 Na Phos,M-B/Na Phos,Di-Ba [Fleet Enema] 133 ml RECTAL ONCE PRN 05/13/16 08:51 Psyllium Seed [Konsyl [place] Sf] 1 pkt PO BID PRN 05/13/16 09:00 Guaifenesin ER [Mucinex] 1,200 mg PO Q12H 05/13/16 21:00 Amitriptyline HCl [Elavil] 50 mg PO HS 05/14/16 04:02 Mag-Al Plus Xs Susp [Maalox Liquid] 30 ml PO Q4H PRN 05/14/16 08:00 Clotrimazole [Mycelex] 10 mg MUCOUS MEM 5 TIMES DAILY Labs on day of discharge: Labs from last 24 hours 05/14/16 06:10 WBC 16.4 H RBC 4.14 L Hgb 12.3 L Hct 37.4 L MCV 90.3 MCH 29.8 MCHC 33.0 RDW 13.5 Plt Count 210 MPV 8.4 Total Counted 100 Neutrophils % (Manual) 87 H Band Neuts % (Manual) 2 H Lymphocytes % (Manual) 4 L Monocytes % (Manual) 7 Platelet Estimate Adequate Anisocytosis 10-19% of cells [place] Cells Present Sodium 136 L Potassium 4.4 Chloride 107 Carbon Dioxide 22 BUN 31 H Creatinine 0.7 GFR Calculation Not Reportable Glucose 117 H Calcium 8.2 L IM: Discharge Physical Exam - I&O/Vital Signs I&O: Intake & Output 05/13/16 05/14/16 05/14/16 21:59 05:59 13:59 Intake Total 590 520 Output Total 850 575 Balance -260 -55 Intake: IV 110 20 Left Forearm 110 20 Oral 480 500 Output: Urine 850 575 Other: Urine Appearance Clear Urine Color Yellow Voiding Method Toilet Toilet Vital Signs: Last Vital Signs Temp 36.2 C L 05/14/16 06:15 Pulse 60 05/14/16 06:15 Resp 18 05/14/16 06:15 BP 118/69 05/14/16 06:15 Pulse Ox 94 05/14/16 06:15 Oxygen Flow Rate 1 Oxygen Delivery Method Nasal Cannula - Constitutional General appearance: Present: average body habitus - Head Head exam: Present: atraumatic - Eye Eye exam: Present: PERRL. Absent: scleral icterus - ENT ENT exam: Present: mucous membranes moist, other (mild thrush) - Neck Neck exam: Present: full ROM - Respiratory Respiratory exam: Present: rales (bibasilar, left greater than right), rhonchi, wheezes (scattered expiratory) - Cardiovascular Cardiovascular exam: Present: RRR. Absent: S3, S4 - GI/Abdominal GI/Abdominal exam: Present: normal bowel sounds, soft. Absent: organomegaly, rebound, rigid, tenderness - Extremities Exam Extremities exam: Absent: calf tenderness, edema - Neurological Exam Neurological exam: Present: oriented X3 - Psychiatric Psychiatric exam: Absent: anxious, depressed - Skin Skin exam: Absent: rash - Allied Health Notes Allied health notes reviewed: nursing, RT <SHANNAN PAGE J - Last Filed: 05/15/16 07:52> Discharge Summary: IM/Peds Provider: Date of Admission: 05/11/16 Admitting Provider: JOE JUNIOR MD Attending Provider: INES DUMONT MD Discharging Provider: SHANNAN PAGE MD Primary Care Provider: Discharge Date: 05/15/16 Hospital Course: Addendum 05/15/2016 Patient is doing well, he denies any shortness of breath or cough and feels ready to go home. Discharged per 's instructions. Shannan Page MD - Time Spent with Patient Total time spent providing and/or coordinating discharge services: Discharge Summary Data - Medication History Medication History: Home Medications Docusate Sodium [Colace*] 100 mg PO BID 05/11/16 Levothyroxine [Synthroid*] 50 mcg PO DAILY 05/11/16 Magnesium Hydroxide [Milk of Magnesia*] 5 - 10 ml PO BID PRN 05/11/16 Methylcellulose [Citrucel] 5 gm PO BID PRN 05/11/16 Multivitamins,Therapeutic [Thera Multivitamin*] 1 tab PO DAILY 05/11/16 Nortriptyline HCl 50 mg PO HS 05/11/16 Polyethylene Glycol 3350 [Glycolax] 17 gm PO DAILY 05/11/16 Pravastatin Sodium [Pravastatin Sodium*] 40 mg PO HS 05/11/16 Saw Hunter Xtr/Zinc Picolin [Saw Hunter Capsule] 1 cap PO DAILY 05/11/16 Tamsulosin HCl [Flomax*] 0.8 mg PO DAILY 05/11/16 Vitamin B Complex 1 tab PO DAILY 05/11/16 Zolpidem Tartrate [Ambien*] 5 mg PO HS PRN 05/11/16 Acetaminophen [Tylenol*] 650 mg PO Q6H PRN #1 tablet 05/14/16 Benzonatate [Tessalon Perle] 200 mg PO TID PRN #50 capsule 05/14/16 Bisacodyl [Bisacodyl*] 5 mg PO BID PRN #1 05/14/16 Clotrimazole [Mycelex*] 10 mg MUCOUS MEM 5 TIMES DAILY #35 halley 05/14/16 Guaifenesin ER [Mucinex*] 1,200 mg PO Q12H 7 Days 05/14/16 Ipratropium/Albuterol [Combivent Inhaler*] 2 puff INHALATION QID #1 inhaler 05/28 Levofloxacin 500 mg PO DAILY #5 tab 05/14/16 aspirin EC [Aspirin EC*] 81 mg PO BID #1 05/14/16 prednisone [Prednisone] 20 mg PO BID #10 tablet 05/14/16 Inpatient Medications 05/11/16 12:29 Acetaminophen [Tylenol] 650 mg PO Q6H PRN 05/11/16 19:07 Benzonatate [Tessalon Pearles] 100 mg PO TID PRN Bisacodyl [Dulcolax] 5 mg PO BID PRN Zolpidem Tartrate [Ambien] 5 mg PO HS PRN 05/11/16 21:00 Docusate Sodium [Colace] 100 mg PO BID Pravastatin Sodium [Pravachol] 40 mg PO HS aspirin EC [Ecotrin 81 mg] 81 mg PO BID 05/12/16 06:30 Levothyroxine [Synthroid] 50 mcg PO BEFORE BREAKFAST 05/12/16 09:00 Polyethylene Glycol 3350 [miraLAX] 17 gm PO DAILY Saw Hunter Xtr/Zinc Picolin [Saw Hunter Capsule] 1 cap PO DAILY Tamsulosin HCl [Flomax] 0.8 mg PO DAILY 05/12/16 10:38 Albuterol 0.083% [Ventolin 0.083% Neb Soln] 2.5 mg NEB Q4H PRN 05/12/16 10:45 Enoxaparin Sodium [Lovenox] 40 mg SUBCUT DAILY 05/13/16 02:48 Na Phos,M-B/Na Phos,Di-Ba [Fleet Enema] 133 ml RECTAL ONCE PRN 05/13/16 08:51 Psyllium Seed [Konsyl [place] Sf] 1 pkt PO BID PRN 05/13/16 09:00 Guaifenesin ER [Mucinex] 1,200 mg PO Q12H 05/13/16 21:00 Amitriptyline HCl [Elavil] 50 mg PO HS 05/14/16 04:02 Mag-Al Plus Xs Susp [Maalox Liquid] 30 ml PO Q4H PRN 05/14/16 08:00 Clotrimazole [Mycelex] 10 mg MUCOUS MEM 5 TIMES DAILY 05/14/16 13:00 Ipratropium/Albuterol [Combivent Respimat] 1 inh INHALATION QID 05/14/16 15:56 Magnesium Hydroxide [Milk of Magnesia] 30 ml PO BID PRN 05/14/16 18:00 prednisone [Deltasone] 20 mg PO BID@0600,1800 05/15/16 09:00 Levofloxacin [Levaquin] 500 mg PO DAILY Procedures and tests throughout hospitalization: Completed Lab Orders 05/12/16 05:40 BASIC METABOLIC PANEL [CHEM] AMDRAW CBC AUTO DIF, MDIF/RMOR IF IND [HEM] AMDRAW 05/12/16 12:25 BASIC METABOLIC PANEL [CHEM] Urgent 05/13/16 05:55 BMP [BASIC METABOLIC PANEL] [CHEM] AMDRAW CBC WITHOUT A DIFFERENTIAL [HEM] Routine MANUAL DIFFERENTIAL [HEM] Routine 05/14/16 06:10 BMP [BASIC METABOLIC PANEL] [CHEM] AMDRAW CBC W/ MANUAL DIFFERENTIAL [HEM] AMDRAW Completed Imaging Orders 05/13/16 07:00 CXR 2V [id number] [RAD] ONCE Completed Microbiology Orders 05/11/16 16:00 SPUTUM CULTURE AND GRAM STAIN [RM] Routine Pending Orders 05/11/16 12:29 Admit: Inpatient Routine Activity: Ambulate TID Assess pulse oximetry CONTINUOUS Humidify Oxygen CONTINUOUS Intake and Output QSHIFT I&O Obtain weight 0600 Resuscitation Status Routine Teach: Deep Breathing & Coughi . Titrate Oxygen TITRATE TO >90% Vital Signs ROUTINE VITALS (Q4H) Putter In Consult [CM] Routine Acetaminophen [Tylenol] 650 mg PO Q6H PRN 05/11/16 12:38 Respiratory Therapy Consult [RT] Routine 05/11/16 19:07 Benzonatate [Tessalon Pearles] 100 mg PO TID PRN Bisacodyl [Dulcolax] 5 mg PO BID PRN Zolpidem Tartrate [Ambien] 5 mg PO HS PRN 05/11/16 21:00 Docusate Sodium [Colace] 100 mg PO BID Pravastatin Sodium [Pravachol] 40 mg PO HS aspirin EC [Ecotrin 81 mg] 81 mg PO BID 05/11/16 Dinner Regular [DIET] 05/12/16 06:30 Levothyroxine [Synthroid] 50 mcg PO BEFORE BREAKFAST 05/12/16 09:00 Polyethylene Glycol 3350 [miraLAX] 17 gm PO DAILY Saw Hunter Xtr/Zinc Picolin [Saw Hunter Capsule] 1 cap PO DAILY Tamsulosin HCl [Flomax] 0.8 mg PO DAILY 05/12/16 10:38 Albuterol 0.083% [Ventolin 0.083% Neb Soln] 2.5 mg NEB Q4H PRN 05/12/16 10:45 Enoxaparin Sodium [Lovenox] 40 mg SUBCUT DAILY 05/13/16 02:48 Na Phos,M-B/Na Phos,Di-Ba [Fleet Enema] 133 ml RECTAL ONCE PRN 05/13/16 08:51 Psyllium Seed [Konsyl [place] Sf] 1 pkt PO BID PRN 05/13/16 09:00 Guaifenesin ER [Mucinex] 1,200 mg PO Q12H 05/13/16 21:00 Amitriptyline HCl [Elavil] 50 mg PO HS 05/14/16 04:02 Mag-Al Plus Xs Susp [Maalox Liquid] 30 ml PO Q4H PRN 05/14/16 08:00 Clotrimazole [Mycelex] 10 mg MUCOUS MEM 5 TIMES DAILY 05/14/16 09:20 Respiratory Teach [RT] . 05/14/16 13:00 Ipratropium/Albuterol [Combivent Respimat] 1 inh INHALATION QID 05/14/16 15:56 Magnesium Hydroxide [Milk of Magnesia] 30 ml PO BID PRN 05/14/16 18:00 prednisone [Deltasone] 20 mg PO BID@0600,1800 05/15/16 09:00 Levofloxacin [Levaquin] 500 mg PO DAILY IM: Discharge Physical Exam - I&O/Vital Signs I&O: Intake & Output 05/14/16 05/15/16 05/15/16 21:59 05:59 13:59 Intake Total 975 500 Output Total 850 800 Balance 125 -300 Weight 71 kg Intake: Oral 975 500 Output: Urine 850 800 Stool 0 Other: Urine Appearance Clear Clear Urine Color Pale Yellow Voiding Method Toilet Toilet # Voids 3 2 Vital Signs: Last Vital Signs Temp 36.4 C L 05/15/16 06:55 Pulse 61 05/15/16 06:55 Resp 15 05/15/16 06:55 BP 117/62 05/15/16 06:55 Pulse Ox 95 05/15/16 06:55 Oxygen Flow Rate 2 Oxygen Delivery Method Nasal Cannula
[2016-05-14] MEDS ORDERED: INHALER, ASSIST DEVICES 1 PKT EACH ONE (12:00)
[2016-05-14] MEDS ORDERED: ALBUTEROL INHALATION ONE (12:00)
[2016-05-14] MEDS ORDERED: IPRATROPIUM INHALATION ONE (12:00)
[2016-05-14] MEDS: ALBUTEROL INHALATION SCH ×2 (13:19→16:40)
[2016-05-14] MEDS: IPRATROPIUM INHALATION SCH ×2 (13:19→16:40)
[2016-05-14] MEDS ORDERED: MAGNESIUM HYDROXIDE 30 ML UDC PO PRN ×2 (15:46→15:56)
[2016-05-14] MEDS: MAGNESIUM HYDROXIDE 30 ML UDC PO PRN (15:52)
[2016-05-14] MEDS: AMITRIPTYLINE HCL 25 MG TABLET PO SCH (20:27)
[2016-05-14] MEDS: PRAVASTATIN SODIUM 40 MG TABLET PO SCH (21:00)
[2016-05-15] MEDS: IPRATROPIUM INHALATION SCH ×2 (06:24→08:51)
[2016-05-15] MEDS: ALBUTEROL INHALATION SCH ×2 (06:24→08:51)
[2016-05-15] MEDS: CLOTRIMAZOLE 10 MG TROCHE MUCOUS MEM SCH ×2 (06:25→08:41)
[2016-05-15] MEDS: LEVOTHYROXINE 50 MCG TABLET PO SCH (06:28)
[2016-05-15 06:58] VITALS: BP 117/62; PULSE 61; RESP 15; TEMP 97.5
[2016-05-15] MEDS ORDERED: SODIUM CHLORIDE NASAL SPRAY 44 SPRAY/44 ML BTL NASAL PRN (07:56)
[2016-05-15] MEDS: POLYETHYLENE GLYCOL 3350 17 GM POWD.PACK PO SCH (08:40)
[2016-05-15] MEDS: TAMSULOSIN HCL 0.4 MG CAPSULE PO SCH (08:41)
[2016-05-15] MEDS: DOCUSATE SODIUM 100 MG CAPSULE PO SCH (08:41)
[2016-05-15] MEDS: GUAIFENESIN ER 600 MG TABLET PO SCH (08:41)
[2016-05-15] MEDS: ENOXAPARIN SODIUM 40 MG/0.4 ML SYR SUBCUT SCH (08:41)
[2016-05-15] MEDS: ZINC PICOLIN PO SCH (08:42)
[2016-05-15] MEDS: SAW PALMETTO XTR PO SCH (08:42)
[2016-05-15] MEDS ORDERED: LEVOFLOXACIN 250 MG TABLET PO SCH (09:00)
[2016-05-15] MEDS: NA PHOS,M-B/NA PHOS,DI-BA 133 ML BTL RECTAL PRN (10:53)
[2016-05-15 11:29] VITALS: O2SAT 96
== END 2016-05-15 07:52 | disposition home or self-care (01) | DRG 178 ==
LOC: IN 12:17
PROVIDERS: ADMIT Family Medicine; ATTEND Internal Medicine
DX: J15.8 Pneumonia due to other specified bacteria (principal); B37.0 Candidal stomatitis; E03.9 Hypothyroidism, unspecified; J30.9 Allergic rhinitis, unspecified; E78.5 Hyperlipidemia, unspecified; K58.9 Irritable bowel syndrome, unspecified; G47.00 Insomnia, unspecified; Z87.11 Personal history of peptic ulcer disease; K22.0 Achalasia of cardia; Z86.73 Personal history of transient ischemic attack (TIA), and cerebral infarction without residual deficits; K59.00 Constipation, unspecified; F32.9 Major depressive disorder, single episode, unspecified; Z79.899 Other long term (current) drug therapy
CPT/HCPCS: 36415; 71020; 80048; 85007; 85025; 85027; 87070; 87205; 94640; 94664; 94667; 94668; J1650; J1956; J2930; J3480; J7120; J7512; J7620

== ENCOUNTER 2016-05-15 12:59 | Observation (INO) | payer MEDICARE, OTHER ==
[2016-05-15] MEDS ORDERED: ADENOSINE 6 MG/2 ML VIAL IV ONE (13:18)
[2016-05-15] MEDS ORDERED: DILTIAZEM HCL 125 MG/25 ML VIAL IV ONE (13:30)
[2016-05-15 13:37] LABS: BLOOD UREA NITROGEN 45 mg/dL (9-20); CALCIUM 8.4 mg/dL (8.4-10.2); CHLORIDE 106 mmol/L (98-107); GLUCOSE 186 mg/dL (70-100); MAGNESIUM 2.5 mg/dL (1.6-2.3); SODIUM 136 mmol/L (137-145)
[2016-05-15 13:39] LABS: INR 1.2; PARTIAL THROMBOPLASTIN TIME 39 sec (24-38)
[2016-05-15 13:48] LABS: TROPONIN I 0.016 ng/mL (0.00-0.034)
[2016-05-15] MEDS ORDERED: POLYETHYLENE GLYCOL 3350 17 GM POWD.PACK PO PRN (13:48)
[2016-05-15] MEDS ORDERED: HOME MEDICATION LIST NEEDED 1 EA EACH MC ONE (13:48)
[2016-05-15] MEDS ORDERED: ACETAMINOPHEN 325 MG TABLET PO PRN (13:48)
[2016-05-15] MEDS ORDERED: MAG-AL PLUS XS SUSP 30 ML UDC PO PRN (13:48)
[2016-05-15] MEDS ORDERED: DEXTROSE 50% WATER 25 GM/50 ML SYR IV PRN (13:53)
[2016-05-15] MEDS ORDERED: ENOXAPARIN SODIUM 40 MG/0.4 ML SYR SUBCUT SCH (14:00)
[2016-05-15] MEDS ORDERED: DILTIAZEM HCL IV SCH (14:00)
[2016-05-15] MEDS ORDERED: NORMAL SALINE 1,000 ML IV SCH ×2 (14:00→17:00)
[2016-05-15] MEDS ORDERED: NORMAL SALINE ADDVANTAGE IV SCH (14:00)
[2016-05-15] MEDS ORDERED: CALCIUM CHLORIDE IV ONE (14:01)
[2016-05-15] MEDS ORDERED: INSULIN REGULAR HUMAN 100 UNITS/ML ML ONE (14:02)
[2016-05-15 14:26] LABS: BASOPHIL# 0.1 X 10^3uL (0.0-0.1); BASOPHILS 0.8 % (0.0-2.0); HEMATOCRIT 32.4 % (42.0-54.0); HEMOGLOBIN 10.5 g/dL (14.0-18.0); LYMPHOCYTES# 0.7 X 10^3uL (0.8-3.8); MEAN CELL VOLUME 91.5 fL (80.0-100.0); MEAN CORPUS. HGB CONCENTRATION 32.5 g/dL (32.0-36.0); MEAN CORPUSCULAR HEMOGLOBIN 29.8 pg (29.0-35.0); MEAN PLATELET VOLUME 7.7 fL (7.4-10.4); MONOCYTES 1.7 % (2.0-10.0); MONOCYTES# 0.2 X 10^3uL (0.2-1.0); NEUTROPHILS# 9.2 X 10^3uL (2.6-6.7); PLATELET COUNT 216 X 10^3uL (130-440); RED BLOOD COUNT 3.54 X 10^6uL (4.20-6.10); RED CELL DISTRIBUTION WIDTH 13.7 % (11.5-14.5); WHITE BLOOD COUNT 10.2 X 10^3uL (3.9-10.7)
[2016-05-15 14:28] LABS: NEUTROPHILS 90.5 % (54.0-75.0)
[2016-05-15 14:39] LABS: ALBUMIN 3.3 g/dL (3.5-5.0); BILIRUBIN, DIRECT 0.4 mg/dL (0.0-0.4); BILIRUBIN, TOTAL 1.2 mg/dL (0.2-1.3); TOTAL PROTEIN 5.7 g/dL (6.3-8.2)
[2016-05-15 15:09] LABS: THYROID STIMULATING HORMONE 1.19 uIU/mL (0.47-4.68)
--- NOTE | 2016-05-15 15:33 | ER PHYSICIAN DOCUMENTATION ---
Physician Documentation [facility] Name:Severiano Shaw Age:86 yrs Sex:Male :1930 Arrival Date:05/15/2016 Time:12:59 Bed4 Private MD:Singh Dumont ED, Scott Disposition: 05/15/16 16:16 Transfer ordered to [facility]. Diagnosis are GI Bleeding - Hypovolemia, Atrial Fibrillation with Rapid Ventricular Response. - Reason for transfer: Higher level of care. - Accepting physician is Carter. - Condition is Serious. - Problem is new. - Symptoms have worsened. COBRA Form completed? Yes Transfer - Mode of Transportation Ambulance HPI: 05/15 13:40 This 86 yrs old Male presents to ER with complaints of near syncope. sc 13:40 The patient presents with a history of irregular heart beat. Context: The symptoms sc occur with light activity. Onset: The symptom(s)/episode began/occurred just prior to arrival. Duration: The patient or guardian reports a single episode, that is still ongoing. Modifying factors: The symptoms are aggravated by change in position. Severity of symptoms: At their worst the symptoms were incapacitating. The patient has recently been admitted at [facility], was discharged earlier today. Historical: - Allergies: No known drug Allergies; No known drug Allergies; - Home Meds: 1. Prednisone Oral 2. Levofloxacin Oral 3. Miralax Oral 4. Aspirin Oral 5. Zolpidem Tartrate Oral 6. Levothroid Oral 7. pravastatin oral 8. tamsulosin oral 9. Nortriptyline Oral 10. Citrucel Fiber Laxative Oral 11. GlycoLax oral 12. saw palmetto oral 13. multivitamin with minerals oral - PMHx: CONSTIPATION; HYPOTHYROIDISM; HIGH CHOLESTEROL; SCIATICA; GERD; PEPTIC ULCER; ESOPHAGEAL ACHALSIA; HYPOXEMIA; Transient Ischemic Attack (TIA)(August 01, 2015); - PSHx: APPENDECTOMY; SHOULDER SURGERY; KNEE SURGERY; - Tetanus: < 10 years. - Ebola Screening: : Patient denies exposure to infectious person. Patient denies travel to an Ebola-affected area in the 21 days before illness onset. . - Social history: Smoking status: Patient states former smoker of tobacco. Patient uses alcohol but reports only rare drinking. ROS: 13:42 Constitutional: Negative for fever, chills, and weight loss. sc Eyes: Negative for injury, pain, redness, and discharge. ENT: Negative for injury, pain, and discharge. Neck: Negative for injury, pain, and swelling. Respiratory: Negative for shortness of breath, cough, wheezing, and pleuritic chest pain. Abdomen/GI: Negative for abdominal pain, nausea, vomiting, diarrhea, and constipation. Back: Negative for injury and pain. MS/Extremity: Negative for injury and deformity. 13:42 Skin: Negative for injury, rash, and discoloration. sc 13:42 Cardiovascular: Positive for palpitations. 13:42 Neuro: Positive for near syncope. Exam: Head/Face: Normocephalic, atraumatic. Eyes: Pupils equal round and reactive to light, extra-ocular motions intact. Lids and lashes normal. Conjunctiva and sclera are non-icteric and not injected. Cornea within normal limits. Periorbital areas with no swelling, redness, or edema. ENT: Nares patent. No nasal discharge, no septal abnormalities noted. Tympanic membranes are normal and external auditory canals are clear. Oropharynx with no redness, swelling, or masses, exudates, or evidence of obstruction, uvula midline. Mucous membranes moist. Neck: Trachea midline, no thyromegaly or masses palpated, and no cervical lymphadenopathy. Supple, full range of motion without nuchal rigidity, or vertebral point tenderness. No meningismus. Chest/axilla: Normal chest wall appearance and motion. Nontender with no deformity. No lesions are appreciated. Cardiovascular: Regular rate and rhythm with a normal S1 and S2. No gallops, murmurs, or rubs. Normal PMI, no JVD. No pulse deficits. Respiratory: Lungs have equal breath sounds bilaterally, clear to auscultation and percussion. No rales, rhonchi or wheezes noted. No increased work of breathing, no retractions or nasal flaring. Abdomen/GI: Soft, non-tender, with normal bowel sounds. No distension or tympany. No guarding or rebound. No evidence of tenderness throughout. 13:42 Neuro: Awake and alert, GCS 15, oriented to person, place, time, and situation. nh Cranial nerves II-XII grossly intact. Motor strength 5/5 in all extremities. Sensory grossly intact. Cerebellar exam normal. Normal gait. 13:42 Constitutional: The patient appears alert, awake, in obvious distress, moderately distressed. 13:42 Skin: Appearance: Color: pale, Temperature: cold, Moisture: diaphoretic. 13:46 Respiratory: mild respiratory distress is noted, Respirations: shallow respirations, sc tachypnea, Breath sounds: are normal, clear throughout. Vital Signs: 12:58 BP 67 / 43; Pulse 163; st 13:01 BP 93 / 77; Pulse 156; st 13:12 BP 88 / 67; Pulse 152; Resp 20; Pulse Ox 100% on 4 lpm NC; st 13:17 BP 108 / 62; Pulse 149; Resp 18; Pulse Ox 99% on NC; st 13:20 BP 78 / 64; Pulse 153; Resp 27; Pulse Ox 90% ; st 13:21 BP 84 / 67; Pulse 150; Resp 21; Pulse Ox 100% ; Pain 0/10; st 13:23 BP 79 / 58; Pulse 136; Resp 20; Pulse Ox 92% ; st 13:25 BP 99 / 60; Pulse 134; Resp 21; st 13:30 BP 91 / 61; Pulse 77; Resp 17; Pulse Ox 97% on 2 lpm NC; Pain 0/10; st 13:35 BP 90 / 60; Pulse 86; Resp 20; Pulse Ox 98% ; st 13:40 BP 104 / 60; Pulse 81; Resp 17; Pulse Ox 97% ; st 13:45 BP 95 / 58; Pulse 71; Resp 12; Pulse Ox 97% ; st 13:50 BP 99 / 62; Pulse 86; Resp 18; Pulse Ox 97% ; st 14:00 BP 117 / 61; Pulse 66; Resp 16; Pulse Ox 99% ; st 14:05 BP 105 / 70; Pulse 76; Resp 16; Pulse Ox 91% ; st 14:10 BP 84 / 67; Pulse 98; Resp 20; Pulse Ox 95% ; st 14:15 BP 107 / 62; Pulse 69; Resp 14; Pulse Ox 98% ; st 14:20 BP 89 / 64; Pulse 90; Resp 17; Pulse Ox 89% ; st 14:25 BP 92 / 61; Pulse 94; Pulse Ox 94% ; st 14:31 BP 81 / 46; Pulse 87; st 14:34 BP 96 / 64; Pulse 94; Pulse Ox 94% ; st 14:36 BP 73 / 60; Pulse 91; Resp 18; Pulse Ox 97% ; st 14:40 BP 97 / 53; Pulse 80; Resp 16; Pulse Ox 97% ; st 14:45 BP 97 / 58; Pulse 79; Resp 20; Pulse Ox 100% ; st 14:50 BP 99 / 61; Pulse 86; Resp 13; Pulse Ox 93% ; Pain 0/10; st 14:55 BP 96 / 88; Pulse 91; Resp 18; Pulse Ox 98% ; st 15:00 BP 110 / 45; Pulse 83; Resp 12; Pulse Ox 95% ; st 15:05 BP 92 / 57; Pulse 14; Pulse Ox 97% ; st 15:10 BP 100 / 60; Pulse 76; Pulse Ox 96% on 2 lpm NC; st 15:15 BP 109 / 62; Pulse 73; Pulse Ox 95% ; st 15:30 BP 99 / 65; Pulse 69; Resp 16; Pulse Ox 91% ; Pain 0/10; st MDM: 13:02 Patient medically screened. nh 13:43 Differential diagnosis: arrythmia, dehydration. Data reviewed: vital signs, nurses sc notes, old medical records, lab test result(s), EKG, and as a result, I will admit patient, continue to observe the patient. Counseling: I had a detailed discussion with the patient and/or guardian regarding: the historical points, exam findings, and any diagnostic results supporting the discharge/admit diagnosis, lab results, radiology results. ECG:. 13:45 ED course: converted from a fib with fluid bolus and small dose of diltiazem iv. TIAs sc last year are noted and Holter obtained although a fib not detected at that time.. 16:08 ED course: Developed black stool and persistent hypotension and transfer arranged.. nh 20:28 EKG attached 05/15 13:37 Order name: BASIC METABOLIC PANEL; Complete Time: 16:13 EDMS 05/15 13:47 Interpretation: Abnormal: POTASSIUM 6.0. nh 05/15 13:37 Order name: MAGNESIUM; Complete Time: 16:13 EDMS 05/15 13:48 Interpretation: Normal Except: MAGNESIUM 2.5. nh 05/15 13:43 Order name: PROTIME/INR; Complete Time: 16:13 EDMS 05/15 13:48 Interpretation: Normal. nh 05/15 13:43 Order name: PARTIAL THROMBOPLASTIN TIME; Complete Time: 16:13 EDMS 05/15 13:48 Interpretation: Abnormal. nh 05/15 13:49 Order name: TROPONIN I; Complete Time: 16:13 EDMD 05/15 14:28 Order name: CBC AUTO DIF, MDIF/RMOR IF IND; Complete Time: 16:13 EDMD 05/15 15:12 Order name: HEPATIC PANEL; Complete Time: 16:13 EDMS 05/15 15:12 Order name: THYROID STIMULATING HORMONE; Complete Time: 16:13 EDMD 05/15 16:11 Order name: HEMOGLOBIN EDMD 05/15 16:11 Order name: HEMATOCRIT EDMD 05/15 16:14 Interpretation: Abnormal: HEMATOCRIT 31.6. sc 05/15 16:24 Order name: LIPASE EDMS EC:43 Rate is 155 beats/min. Rhythm is irregularly irregular. QRS [place] is Normal. [place] interval sc is normal. QRS interval is normal. QT interval is normal. No Q waves. T waves are Normal. No ST changes noted. Clinical impression: Atrial Fibrillation. Interpreted by me. Reviewed by me. Dispensed Medications: 13:10 Drug: NS 0.9% 500 ml; Route: IV; Rate: bolus; Site: right antecubital; st 13:40 Follow up: IV Status: Completed infusion; IV Intake: 500ml st 13:15 Drug: Diltiazem 5 mg; Route: IVP; Infused Over: 5 mins; Site: right antecubital; st 20:26 Follow up: heart rate converted to a sinus rythem st 13:31 Drug: Diltiazem 5 mg/hr; Route: IV; Rate: calculated rate; Site: right antecubital; st 14:40 Follow up: IV Status: Infusion discontinued st 13:59 Drug: Insulin Regular Human 5 units; Route: IVP; Site: right antecubital; st 20:27 Follow up: Response: No adverse reaction st 14:01 Drug: NS 0.9% 500 ml; Route: IV; Rate: 100 ml/hr; Site: right antecubital; st 14:40 Follow up: Rate change bolus st 15:32 Follow up: IV Status: Completed infusion; IV Intake: 500ml st 14:01 Drug: Calcium Chloride 1 grams; Route: IVP; Site: right antecubital; st 20:27 Follow up: Response: No adverse reaction st Signatures: Chantal Roman RN RN Robert Mojica MD MD sc Bollock, Lynda lb
--- NOTE | 2016-05-15 15:33 | ER NURSING DOCUMENTATION ---
Nurse's Notes [facility] Name:Severiano Shaw Age:86 yrs Sex:Male :1930 Arrival Date:05/15/2016 Time:12:59 Bed4 Private MD:Singh Dumont Diagnosis:GI Bleeding - Hypovolemia;Atrial Fibrillation with Rapid Ventricular Response Presentation: 05/15 13:00 Presenting complaint: Presenting complaint: Patient states: pt was d/igor from med surge st today and made it to safe way were he felt dizzy. pt then came back to the hospital and had a large BM and got even dizzier and very pale. 13:06 Acuity: ARTEMIO 1 st 16:14 Transition of care: patient was not received from another setting of care. st 16:14 Method Of Arrival: Wheelchair st Triage Assessment: 13:00 General: pt is pale drowsy and complains of dizziness. pt also has no strength. pulses st are week and thready. pt is in SVT with a systolic BP of 63.. 13:30 General: Appears appearance is improving. Behavior is cooperative. Pain: Denies pain. st Neuro: No deficits noted. Cardiovascular: hypotensive. Heart tones present Rhythm is sinus rhythm. 13:30 Respiratory: No deficits noted. GI: Reports having a large BM [employer]. pt states it was st green in color. Historical: - Allergies: No known drug Allergies; No known drug Allergies; - Home Meds: 1. Prednisone Oral 2. Levofloxacin Oral 3. Miralax Oral 4. Aspirin Oral 5. Zolpidem Tartrate Oral 6. Levothroid Oral 7. pravastatin oral 8. tamsulosin oral 9. Nortriptyline Oral 10. Citrucel Fiber Laxative Oral 11. GlycoLax oral 12. saw palmetto oral 13. multivitamin with minerals oral - PMHx: CONSTIPATION; HYPOTHYROIDISM; HIGH CHOLESTEROL; SCIATICA; GERD; PEPTIC ULCER; ESOPHAGEAL ACHALSIA; HYPOXEMIA; Transient Ischemic Attack (TIA)(August 01, 2015); - PSHx: APPENDECTOMY; SHOULDER SURGERY; KNEE SURGERY; - Tetanus: < 10 years. - Ebola Screening: : Patient denies exposure to infectious person. Patient denies travel to an Ebola-affected area in the 21 days before illness onset. . - Social history: Smoking status: Patient states former smoker of tobacco. Patient uses alcohol but reports only rare drinking. Screenin:34 Infectious Disease Risk None. Abuse screen: Denies threats or abuse. Denies injuries st from another. Nutritional screening: No deficits noted. Assessment: 13:00 General: pt placed in Trendelenburg. . st 13:31 General: pt is now in a normal sinus rythem.. st 14:17 General: pt states he is feeling much better. his color is better. He states his st lightheadedness is gone. . 16:05 General: pt had a positive hemoccult test run by admitting . Admitting DrJuve asked Dr Mojica to transfer . . 16:33 General: pt has some abd brusing.. st Vital Signs: 12:58 BP 67 / 43; Pulse 163; st 13:01 BP 93 / 77; Pulse 156; st 13:12 BP 88 / 67; Pulse 152; Resp 20; Pulse Ox 100% on 4 lpm NC; st 13:17 BP 108 / 62; Pulse 149; Resp 18; Pulse Ox 99% on NC; st 13:20 BP 78 / 64; Pulse 153; Resp 27; Pulse Ox 90% ; st 13:21 BP 84 / 67; Pulse 150; Resp 21; Pulse Ox 100% ; Pain 0/10; st 13:23 BP 79 / 58; Pulse 136; Resp 20; Pulse Ox 92% ; st 13:25 BP 99 / 60; Pulse 134; Resp 21; st 13:30 BP 91 / 61; Pulse 77; Resp 17; Pulse Ox 97% on 2 lpm NC; Pain 0/10; st 13:35 BP 90 / 60; Pulse 86; Resp 20; Pulse Ox 98% ; st 13:40 BP 104 / 60; Pulse 81; Resp 17; Pulse Ox 97% ; st 13:45 BP 95 / 58; Pulse 71; Resp 12; Pulse Ox 97% ; st 13:50 BP 99 / 62; Pulse 86; Resp 18; Pulse Ox 97% ; st 14:00 BP 117 / 61; Pulse 66; Resp 16; Pulse Ox 99% ; st 14:05 BP 105 / 70; Pulse 76; Resp 16; Pulse Ox 91% ; st 14:10 BP 84 / 67; Pulse 98; Resp 20; Pulse Ox 95% ; st 14:15 BP 107 / 62; Pulse 69; Resp 14; Pulse Ox 98% ; st 14:20 BP 89 / 64; Pulse 90; Resp 17; Pulse Ox 89% ; st 14:25 BP 92 / 61; Pulse 94; Pulse Ox 94% ; st 14:31 BP 81 / 46; Pulse 87; st 14:34 BP 96 / 64; Pulse 94; Pulse Ox 94% ; st 14:36 BP 73 / 60; Pulse 91; Resp 18; Pulse Ox 97% ; st 14:40 BP 97 / 53; Pulse 80; Resp 16; Pulse Ox 97% ; st 14:45 BP 97 / 58; Pulse 79; Resp 20; Pulse Ox 100% ; st 14:50 BP 99 / 61; Pulse 86; Resp 13; Pulse Ox 93% ; Pain 0/10; st 14:55 BP 96 / 88; Pulse 91; Resp 18; Pulse Ox 98% ; st 15:00 BP 110 / 45; Pulse 83; Resp 12; Pulse Ox 95% ; st 15:05 BP 92 / 57; Pulse 14; Pulse Ox 97% ; st 15:10 BP 100 / 60; Pulse 76; Pulse Ox 96% on 2 lpm NC; st 15:15 BP 109 / 62; Pulse 73; Pulse Ox 95% ; st 15:30 BP 99 / 65; Pulse 69; Resp 16; Pulse Ox 91% ; Pain 0/10; st ED Course: 13:00 Patient arrived in ED. we 13:00 Oxygen Oxygen administration via nasal cannula @ 2L/min. st 13:00 Valuables Remains with patient Patient has correct armband on for positive st identification. Placed in gown. Bed in low position. pt placed on trandelenburg.. 13:02 Robert Moncada MD is Attending Physician. sc 13:06 Chantal Roman RN is Primary Nurse. st 13:[address] 13:10 Inserted saline lock: 20 gauge in right antecubital area and blood collected. sd3 13:10 EKG done per protocol. Performed by ED Staff. Shown to ED physician. st 13:45 Naz Page MD is Admitting Physician. sc 14:14 EKG done per protocol. Performed by ED Staff. Shown to ED physician. st 14:16 Singh Dumont MD is Private Physician. ama 14:39 Diet: Patient given juice. st 16:04 Primary Nurse role handed off by Chantal Roman RN st 20:28 EKG attached lb Administered Medications: 13:10 Drug: NS 0.9% 500 ml; Route: IV; Rate: bolus; Site: right antecubital; st 13:40 Follow up: IV Status: Completed infusion; IV Intake: 500ml st 13:15 Drug: Diltiazem 5 mg; Route: IVP; Infused Over: 5 mins; Site: right antecubital; st 20:26 Follow up: heart rate converted to a sinus rythem st 13:31 Drug: Diltiazem 5 mg/hr; Route: IV; Rate: calculated rate; Site: right antecubital; st 14:40 Follow up: IV Status: Infusion discontinued st 13:59 Drug: Insulin Regular Human 5 units; Route: IVP; Site: right antecubital; st 20:27 Follow up: Response: No adverse reaction st 14:01 Drug: NS 0.9% 500 ml; Route: IV; Rate: 100 ml/hr; Site: right antecubital; st 14:40 Follow up: Rate change bolus st 15:32 Follow up: IV Status: Completed infusion; IV Intake: 500ml st 14:01 Drug: Calcium Chloride 1 grams; Route: IVP; Site: right antecubital; st 20:27 Follow up: Response: No adverse reaction st Intake: 13:40 IV: 500ml; Total: 500ml. st 15:32 IV: 500ml; Total: 1000ml. st Outcome: 13:45 Decision to Admit by Provider. sc 15:29 Admitted to Med/surg accompanied by nurse, via stretcher. st 15:29 Condition: stable 15:29 Report given to Prashant REVELES 15:29 Instructed on need to admit 15:32 Patient left the ED. st 16:16 ER care complete, transfer ordered by MD. ca 16:46 Admitted to 16:46 Transferred: Patient will be transferred to: [facility]. Facility st Acceptance Time: May 15, 2016 at 16:47 Patient's face sheet was faxed to accepting facility. Face Sheet included patient's name, address, age, gender, contact information and insurance information. Patient will be transported by: [facility] ground. Nurse and Physician Charting and Notes were sent to Accepting Facility. All tests and/or procedures with results, if applicable, were sent to accepting facility. 16:46 Report given to laila REVELES 16:47 Patient [address] the ED. st Signatures: Chantal Roman, RN RN Robert Mojica MD MD [facility] sd3 Braeden Dominguez, Reg Reg Tj Dunlap Lynda lb
[2016-05-15 16:02] VITALS: RESP 18; TEMP 98.5; O2SAT 97
[2016-05-15 16:10] LABS: HEMATOCRIT 31.6 % (42.0-54.0); HEMOGLOBIN 10.6 g/dL (14.0-18.0)
[2016-05-15] MEDS ORDERED: PANTOPRAZOLE 40 MG VIAL IV ONE ×2 (16:25→16:26)
[2016-05-15] MEDS ORDERED: INSULIN LISPRO 100 UNIT/ML ML SUBCUT SCH (17:00)
[2016-05-15 17:20] VITALS: BP 79/59; PULSE 92
--- NOTE | 2016-05-15 19:58 | DC SUMMARY: IM Note ---
Discharge Summary: IM/Peds Provider: Date of Admission: 05/15/16 Admitting Provider: SHANNAN OAKES MD Attending Provider: INES CLARK MD Discharging Provider: SHANNAN OAEKS MD Primary Care Provider: Discharge Date: 05/15/16 - Diagnosis (1) Acute GI bleeding Status: Acute (2) Hypotension due to blood loss Status: Acute (3) Atrial dilatation, left Status: Acute (4) Atrial fibrillation with rapid ventricular response Status: Acute Hospital Course: See patient care note for details of brief admission and discharge events. LIVE [facility] HUNTER BENEDICT Male : 1930 [facility]# [id number] 05/15/16 18:52 - Physician Care Note by SHANNAN OAKES [facility] Num: [id number] : 1930 Patient Age: 86 Physician Care Note - Physician Care Note Physician Care Note: Patient had been discharged after breakfast, following an admission for URI. He was feeling well, vital signs were stable. He had no labs ordered, but the labs from the day before were normal, other than an elevated WBC, which had been attributed to the administration of steroids. An hour or so later, the Med-Surg floor received a call from the patient's daughter. He had become very dizzy and nearly syncopal in [employer], and the daughter brought him back to the front lobby. A nurse met him there and patient stated he needed to have a bowel movement, so she escorted him to the bathroom, where he had a "very large" movement. Patient was having trouble standing, so the nurse escorted him to the ER. There, the patient was found to have SVT, and was placed on a Cardizem drip. He was hypotensive, requiring IVF and Trendelenburg positioning. He was placed on Cardizem, and had some surprising findings on laboratory studies, with hyperkalemia to 6.0 (yesterday 4.4,) increased BUN and a slightly increased troponin, but still in the normal range. His rhythm changed to atrial fibrillation, but the patient remained hypotensive for some time. After stabilization and spontaneous conversion to sinus rhythm, the patient was ready for transfer to the floor. His hyperkalemia was treated in the emergency room, with insulin and Calcium Chloride administration, and labs were ordered to follow up later in the afternoon. In the meantime, I started to dictate the patient's re-admission note, and in going through the labs from the ER, realized that his Hemoglobin was considerably lower than it had been the day before. I went back to re-examine the patient, and found that he had melena. In the meantime, the patient had developed unusual and diffuse bruising across the lower chest, upper abdomen and left flank, which had not been present in the morning. He had an elevated prothrombin time and partial thromboplastin time. He had again become hypotensive with a systolic pressure of 79. I ordered the administration of NS, a dose of Protonix IV, and a second IV site was established in the other arm. He was placed in Trendelenberg again. Patient remained alert and comfortable. I spoke with Dr. Moncada in the ER and he arranged for transfer to [facility] by ambulance. Patient was monitored on the Med-Surg floor until the ambulance crew arrived, and I remained with him. Initialized on 05/15/16 18:52 - END OF NOTE - Time Spent with Patient Total time spent providing and/or coordinating discharge services: Time with patient DS: Greater than 30 minutes Discharge - Patient/Caregiver Discharge Instructions Activity Level: as tolerated Diet: NPO Overall discharge status: patient is not back to baseline Disposition: [facility] Discharge Summary Data - Medication History Medication History: Home Medications Docusate Sodium [Colace*] 100 mg PO BID 05/11/16 Levothyroxine [Synthroid*] 50 mcg PO BEFORE BREAKFAST 05/11/16 Magnesium Hydroxide [Milk of Magnesia*] 30 ml PO BID PRN 05/11/16 Methylcellulose [Citrucel] 5 gm PO BID PRN 05/11/16 Multivitamins,Therapeutic [Thera Multivitamin*] 1 tab PO DAILY 05/11/16 Nortriptyline HCl 50 mg PO HS 05/11/16 Polyethylene Glycol 3350 [Glycolax] 17 gm PO DAILY 05/11/16 Pravastatin Sodium [Pravastatin Sodium*] 40 mg PO HS 05/11/16 [place] Xtr/Zinc Picolin [[place] Capsule] 1 cap PO DAILY 05/11/16 Tamsulosin HCl [Flomax*] 0.8 mg PO DAILY 05/11/16 Vitamin B Complex 1 tab PO DAILY 05/11/16 Zolpidem Tartrate [Ambien*] 5 mg PO HS PRN 05/11/16 Acetaminophen [Tylenol*] 650 mg PO Q6H PRN #1 tablet 05/14/16 Benzonatate [Tessalon Perle] 200 mg PO TID PRN #50 capsule 05/14/16 Bisacodyl [Bisacodyl*] 5 mg PO BID PRN #1 05/14/16 Clotrimazole [Mycelex*] 10 mg MUCOUS MEM 5 TIMES DAILY #35 halley 05/14/16 Guaifenesin ER [Mucinex*] 1,200 mg PO Q12H 7 Days 05/14/16 Ipratropium/Albuterol [Combivent Inhaler*] 2 puff INHALATION QID #1 inhaler 05/28 Levofloxacin 500 mg PO DAILY #5 tab 05/14/16 aspirin EC [Aspirin EC*] 81 mg PO BID #1 05/14/16 prednisone [Prednisone] 20 mg PO BID #10 tablet 05/14/16 Inpatient Medications 05/15/16 17:00 Normal Saline [Sodium Chloride 0.9% 1000 ml] 1,000 ml IV CONT Procedures and tests throughout hospitalization: Completed Lab Orders 05/15/16 16:06 HEMATOCRIT [HEM] Stat HEMOGLOBIN [HEM] Stat LIPASE [CHEM] Stat Pending Orders 05/15/16 17:00 Normal Saline [Sodium Chloride 0.9% 1000 ml] 1,000 ml IV CONT Labs on day of discharge: Labs from last 24 hours 05/15/16 16:06 Hgb 10.6 L Hct 31.6 L Lipase 74 IM: Discharge Physical Exam - I&O/Vital Signs Vital Signs: Last Vital Signs Temp 36.9 C 05/15/16 16:00 Pulse 92 H 05/15/16 16:35 Resp 18 05/15/16 16:00 BP 79/59 05/15/16 16:35 Pulse Ox 97 05/15/16 16:35 Oxygen Flow Rate 2 Oxygen Delivery Method Nasal Cannula - Constitutional General appearance: Present: average body habitus - Head Head exam: Present: normal inspection - Eye Eye exam: Present: EOMI, PERRL Pupils: Present: PERRL - ENT ENT exam: Present: mucous membranes moist - Neck Neck exam: Present: full ROM - Respiratory Respiratory exam: Present: CTAB - Cardiovascular Cardiovascular exam: Present: RRR - GI/Abdominal GI/Abdominal exam: Present: diminished bowel sounds, soft, other (loewer chest) . Absent: tenderness - Rectal Rectal exam: Present: black stool, heme (+) stool - Extremities Exam Extremities exam: Absent: calf tenderness, edema, tenderness - Neurological Exam Neurological exam: Present: alert, CN II-XII intact, oriented X3 - Psychiatric Psychiatric exam: Present: normal affect - Skin Skin exam: Present: other (lower chest upper abdominal bruising)
== END 2016-05-15 20:03 | disposition short-term general hospital (02) ==
LOC: ER 12:59 → IN 15:31
PROVIDERS: ADMIT Internal Medicine; ATTEND Internal Medicine
DX: I48.91 Unspecified atrial fibrillation (principal); K92.2 Gastrointestinal hemorrhage, unspecified; I95.89 Other hypotension; E87.5 Hyperkalemia; Z79.899 Other long term (current) drug therapy
CPT/HCPCS: 36415; 80048; 80076; 83690; 83735; 84443; 84484; 85014; 85018; 85025; 85610; 85730; 93005; 93010; 96361; 96365; 96375; 99285; A0425; A0427; G0378; J0153; J1650; J1815; J7030

== ENCOUNTER 2016-09-28 22:48 | Emergency (ER) | payer MEDICARE, OTHER ==
[2016-09-28] MEDS ORDERED: FENTANYL 100 MCG/2 ML VIAL ONE (23:11)
[2016-09-29] MEDS ORDERED: ONDANSETRON ODT PREPAC 4 MG TAB.RAPDIS PO ONE (00:35)
--- NOTE | 2016-09-29 01:08 | ER NURSING DOCUMENTATION ---
Nurse's Notes [facility] Name:Severiano Shaw Age:86 yrs Sex:Male :1930 Arrival Date:09/28/2016 Time:22:48 Bed4 Private MD:Singh Dumont Diagnosis:Shoulder Sprain Presentation: 09/28 22:50 Presenting complaint: Patient states: right shoulder pain. pt states it started at 1600 bw2 today. Transition of care: Home. 22:50 Acuity: ARTEMIO 3 bw2 22:50 Method Of Arrival: EMS: 410 bw2 22:53 Care prior to arrival: IV initiated. gauge and site 20g left hand IV Fluids given by bw2 EMS NS 250 ml Medication(s) given: Fentanyl 100MCG. Triage Assessment: 22:52 General: Appears in no apparent distress, Behavior is appropriate for age. Pain: bw2 Complains of pain in right sided shoulder pain. Historical: - Allergies: No known drug Allergies; - Tetanus: < 10 years. - Ebola Screening: : Patient negative for fever greater than or equal to 101.5 degrees Fahrenheit, and additional compatible Ebola Virus Disease symptoms. Patient denies exposure to infectious person. Patient denies travel to an Ebola-affected area in the 21 days before illness onset. No symptoms or risks identified at this time. . - Immunization history: Flu Vaccine < 1 year. - Social history: Smoking status: Patient states was never smoker of tobacco. Screenin:54 Infectious Disease Risk None. Abuse screen: Denies threats or abuse. Nutritional bw2 screening: No deficits noted. Assessment: 22:54 See Triage Assessment done by same RN. Respiratory: Breath sounds are clear bw2 bilaterally. GI: No deficits noted. Vital Signs: 22:52 BP 140 / 80; Pulse 67; Resp 18; Temp 97.8; Pulse Ox 96% on R/A; Weight 77.11 kg; Height bw2 6 ft. (182.88 cm); Pain 4/10; 09/29 00:28 BP 144 / 80; Pulse 79; Resp 18; Pulse Ox 97% ; bw2 09/28 22:52 Body Mass Index 23.06 (77.11 kg, 182.88 cm) bw2 ED Course: 09/28 22:49 Patient arrived in ED. em2 22:49 Singh Dumont MD is Private Physician. em2 22:50 Wisely, Vale is Primary Nurse. bw2 22:51 Triage completed. bw2 22:54 Valuables Remains with patient Placed in gown. Bed in low position. Side rails up X2. bw2 22:55 Inserted peripheral IV: 20 gauge in left hand and blood collected. bw2 23:06 Dixon Teresa MD is Attending Physician. tl1 23:20 Patient moved to radiology. pm1 23:34 Patient moved back from radiology. pm1 09/29 00:14 Luca Richey MD, Juan Pablo Flynn DO is Referral Physician. tl1 01:00 when this nurse entered room to notify pt and his that the cab that we called was bw2 her, pt became upset that pain was increasing. this nurse reminded that it had onlt been a few min since pt took 1 tab of his take home medications. pt then stated that I didn't not give him pain medications and that maybe I gave him something else instead. I told pt and that I certainly helped him take his pain medication and there was no other medications that I gave him. this nurse then showed pt and his the opened bottle that I helped them with. pt stated that she was going to complain about this nurse because it should not take 30 min for pain to be releived. At this point the doctor on duty confirmed that oral pain medications can take 30 min to work. verbal order given to give pt 0.5 mg Dilaudid IM. medication given as ordered. Administered Medications: 09/28 23:44 Drug: Dilaudid 0.5 mg; Route: IVP; Site: right hand; bw2 09/29 00:26 Follow up: Response: Pain is decreased bw2 00:26 Drug: HYDROcodone-acetaminophen (5mg/325 mg) 1-2 tabs 1 tabs; Route: PO; bw2 00:27 Follow up: Response: Pharmacy closed - take home med pack bw2 00:27 Drug: Zofran 1 tablet; Route: PO; bw2 00:27 Follow up: Response: Pharmacy closed - take home med pack bw2 00:59 Drug: Dilaudid 0.5 mg; Route: IVP; Site: left antecubital; 2 Outcome: 00:15 Discharge ordered by . tl1 00:28 Discharged to home ambulatory, with significant other. bw2 00:28 Condition: good 00:28 Discharge Assessment: Patient awake, alert and oriented x 3. No cognitive and/or functional deficits noted. Patient verbalized understanding of disposition instructions. 00:28 Discharge instructions given to patient, significant other, Instructed on discharge instructions, follow up and referral plans. medication usage, Demonstrated understanding of instructions, medications. 01:07 Patient left the ED. bw2 15:44 Discharge F/U Call: Spoke with: patient. other: Name: Pt states that his pain is st doing ok with the pain meds. pt has seen Dr. Richey and been prescribed physical therapy. Signatures: Chantal Roman, RN RN Paramjit George pm1 Emily-wale, Shilo em2 Dixon Teresa MD MD tl1 Vale Anderson bw2
--- NOTE | 2016-09-29 01:08 | ER PHYSICIAN DOCUMENTATION ---
Physician Documentation [facility] Name:Severiano Shaw Age:86 yrs Sex:Male :1930 Arrival Date:09/28/2016 Time:22:48 Bed4 Private MD:Singh Dumont ED, Tom Disposition: 09/29 01:09 Chart complete. tl1 Disposition: 09/29/16 00:15 Discharged to Home/Self Care. Impression: Shoulder Sprain. - Condition is Good. - Prescriptions for [place] 5- 325 mg Oral - take 1 tablet by ORAL route every 6 hours As needed; 10 tablet. Zofran 4 mg Oral Tablet - take 1-2 tablet by ORAL route every 4-6 hours As needed; 10 tablet. - Medical Reconciliation form form. - Follow up: Luca Richey MD, Juan Pablo Flynn DO; When: 1 - 2 days; Reason: Recheck today's complaints, Continuance of care. - Problem is new. - Symptoms are unchanged. HPI: 09/28 22:55 This 86 yrs old Male presents to ER via EMS with complaints of Shoulder Pain. tl1 22:55 The patient or guardian complains of pain. right shoulder. Context: The problem was tl1 sustained at home, resulted from an unknown reason, The patient experiences decreased range of motion, The patient reports no obvious deformity. Onset: The symptom(s)/episode began/occurred gradually, today, at 16:00. Modifying factors: the symptoms are alleviated by remaining still, The symptoms are aggravated by movement. Associated signs and symptoms: The patient has no apparent associated signs or symptoms. He has had bilateral rotator cuff surgeries in the past. He was sitting at home playing a board game when his right shoulder started to hurt for no apparent reason. The pain is worse with movement in any direction of the shoulder. NO fever . No recent trauma. No chest heaviness or dyspnea, n/v or diaphoresis. No cough, neck pain or abdominal pain.. Historical: - Allergies: No known drug Allergies; - Tetanus: < 10 years. - Ebola Screening: : Patient negative for fever greater than or equal to 101.5 degrees Fahrenheit, and additional compatible Ebola Virus Disease symptoms. Patient denies exposure to infectious person. Patient denies travel to an Ebola-affected area in the 21 days before illness onset. No symptoms or risks identified at this time. . - Immunization history: Flu Vaccine < 1 year. - Social history: Smoking status: Patient states was never smoker of tobacco. ROS: 09/29 00:58 MS/extremity: Positive for pain. tl1 All other systems are negative. Exam: 00:58 Constitutional: This is a well developed, well nourished patient who is awake, alert, tl1 and in no acute distress. Head/Face: Normocephalic, atraumatic. 00:58 Eyes: Pupils equal round and reactive to light, extra-ocular motions intact. Lids and tl1 lashes normal. Conjunctiva and sclera are non-icteric and not injected. Cornea within normal limits. Periorbital areas with no swelling, redness, or edema. 00:58 Chest/axilla: Inspection: normal, Palpation: tenderness, that is mild, of the anterior aspect of right upper chest, that partially reproduces the patient's complaints. 00:58 Cardiovascular: Rate: normal, Rhythm: regular, Heart sounds: normal, no S3 or S4, no murmur, no rub, no gallop. 00:58 Respiratory: the patient does not display signs of respiratory distress, Respirations: normal, no acute changes, Breath sounds: are normal, no decreased breath sounds, no rales, rhonchi, no stridor, no wheezing. 00:58 Abdomen/GI: Palpation: abdomen is soft and non-tender. 00:58 Musculoskeletal/extremity: Circulation is intact in all extremities. Sensation intact. Joints: All joints are normal except the right shoulder displays pain at rest, painful range of motion, Neer test positive. Wilkinson-Wilton test positive. Empty can test pos weakness and pain. Can't do painful arc test. Also has pain with external more than internal rotation against resistance. Shoulder, however is NTTP. HE has pain over the coracoid and lateral shoulder diffusely with flexion at the elbow against resistance. Distal Nv Exam is normal.. 00:58 Skin: Exam negative for acute changes. Vital Signs: 09/28 22:52 BP 140 / 80; Pulse 67; Resp 18; Temp 97.8; Pulse Ox 96% on R/A; Weight 77.11 kg; Height bw2 6 ft. (182.88 cm); Pain 4/10; 09/29 00:28 BP 144 / 80; Pulse 79; Resp 18; Pulse Ox 97% ; bw2 09/28 22:52 Body Mass Index 23.06 (77.11 kg, 182.88 cm) bw2 MDM: 09/28 23:06 Patient medically screened. tl1 09/29 01:02 Differential diagnosis: DJD, tendonitis, adhesive capsulitis, myofascial pain, tl1 glenohumeral arthritis, impingement syndrome. No suggestion of calcific bursitis on x-ray. Data reviewed: vital signs, nurses notes, radiologic studies, plain films, and as a result, I will discharge patient. Test interpretation: by ED physician or midlevel provider: plain radiologic studies. Counseling: I had a detailed discussion with the patient and/or guardian regarding: the historical points, exam findings, and any diagnostic results supporting the discharge/admit diagnosis, radiology results, the need for outpatient follow up, a orthopedic surgeon, to return to the emergency department if symptoms worsen or persist or if there are any questions or concerns that arise at home. Medication response: The patient's symptoms have improved, Dilaudid. Response to treatment: the patient's symptoms have mildly improved after treatment, and as a result, I will discharge patient. 09/29 11:39 Order name: SHOULDER; 2V+ [place] [id number] EDMS 09/29 11:39 Order name: [id number] EDMS Dispensed Medications: 09/28 23:44 Drug: Dilaudid 0.5 mg; Route: IVP; Site: right hand; bw2 09/29 00:26 Follow up: Response: Pain is decreased bw2 00:26 Drug: HYDROcodone-acetaminophen (5mg/325 mg) 1-2 tabs 1 tabs; Route: PO; bw2 00:27 Follow up: Response: Pharmacy closed - take home med pack bw2 00:27 Drug: Zofran 1 tablet; Route: PO; bw2 00:27 Follow up: Response: Pharmacy closed - take home med pack bw2 00:59 Drug: Dilaudid 0.5 mg; Route: IVP; Site: left antecubital; bw2 Signatures: Dixon Teresa MD MD tl1 Vale Anderson bw2
--- NOTE | 2016-09-29 11:36 | RADIOLOGY REPORT ---
Three views of the right shoulder demonstrate no displaced fracture or dislocation. Limited views of the joints are unremarkable. IMPRESSION: No displaced injury is identified. If clinically indicated, further evaluation and/or follow-up may be of benefit. DARYN
--- NOTE | 2016-09-29 11:37 | RADIOLOGY REPORT ---
Two views of the chest are compared with prior films dated 08/06/2016. The heart and vessels are stable. Stable bibasilar scarring is noted. No acute infiltrate, fluid or pneumothorax is seen. IMPRESSION: Stable bibasilar scarring. MTDD
== END 2016-09-29 01:07 | disposition home or self-care (01) ==
LOC: ER 22:48
DX: S43.491A Other sprain of right shoulder joint, initial encounter (principal); Y92.019 Unspecified place in single-family (private) house as the place of occurrence of the external cause; Z74.3 Need for continuous supervision
CPT/HCPCS: 71020; 73030; 96374; 96376; 99213; 99283; 99284; A0425; A0427; J1170; J3010